=== PATIENT | female | born 1985 | race Two or more races ===

== ENCOUNTER 2017-07-16 09:55 | Emergency (ER) | payer OTHER ==
[2017-07-16 10:00] VITALS: TEMP 98.3; BMI 35.6
[2017-07-16] MEDS ORDERED: ACETAMINOPHEN 325 MG TABLET (FP) PO ONE (10:58)
--- NOTE | 2017-07-16 11:19 | PDOC ---
History of Present Illness - General Chief Complaint: Nausea Stated Complaint: PAIN/ LOWER PELVIC, ABD, LEG BRUISE Time Seen by Provider: 07/16/17 10:48 History Source: Patient Exam Limitations: No Limitations - History of Present Illness Travel History: No Initial Comments: 07/16/17 11:00 31-year-old female presents to the ED with left suprapubic mid suprapubic cramping associated now with nausea and pain upon movement. Patient states has history of ovarian cyst but denies history of ectopic or ovarian torsion. Patient does state menses came this month and only for 2 days. Patient states no back pain, dysuria, constipation, but does complain of radiation of pain down her left leg. Quality: reports: moderate, cramping Abdominal Pain Onset Location: reports: suprapubic (left) Pain Radiation: reports: other (midsuprapubic) Aggravating Factors: improves with: Movement Alleviating Factors: improves with: None Past History - Past Medical History Allergies/Adverse Reactions: Allergies Allergy/AdvReac Type Severity Reaction Status Date / Time No Known Allergies Allergy Verified 07/16/17 10:00 Home Medications: Ambulatory Orders Duloxetine HCl [Cymbalta] 30 mg PO DAILY 07/16/17 Meloxicam [Mobic] 7.5 mg PO ASDIR PRN 07/16/17 Psychiatric Problems: Yes (depression) Suicide Attempt (Hx): Yes - Immunization History Immunization Up to Date: Yes - Psycho/Social/Smoking Cessation Hx Anxiety: No Suicidal Ideation: No Smoking Status: No Smoking History: Current every day smoker Have you smoked in the past 12 months: Yes Number of Cigarettes Smoked Daily: 3 Information on smoking cessation initiated: Yes 'Breaking Loose' booklet given: 07/16/17 Hx Alcohol Use: Yes (SOCIAL) Drug/Substance Use Hx: No Substance Use Type: None Patient Lives Alone: No Lives with/in: spouse/SO Review of Systems - Review of Systems Able to Perform ROS?: Yes Constitutional: No: Symptoms Reported Respiratory: No: Symptoms reported Cardiac (ROS): No: Symptoms Reported ABD/GI: Yes: Nausea, Abdominal cramping : No: Symptoms Reported Musculoskeletal: No: Symptoms Reported Integumentary: Yes: Bruising (2 small bruises to lt leg) Neurological: No: Symptoms reported *Physical Exam - Vital Signs Last Vital Signs Temp Pulse Resp BP Pulse Ox 98.3 F 63 20 146/67 100 07/16/17 09:57 07/16/17 09:57 07/16/17 09:57 07/16/17 09:57 07/16/17 09:57 - Physical Exam General Appearance: Yes: Nourished, Appropriately Dressed. No: Apparent Distress HEENT: negative: Pale Conjunctivae Neck: positive: Supple Respiratory/Chest: positive: Lungs Clear, Normal Breath Sounds. negative: Respiratory Distress, Accessory Muscle Use Cardiovascular: positive: Regular Rhythm, Regular Rate. negative: Murmur Female Pelvic Exam: positive: cervical os closed, adnexal tenderness (left). negative: CMT Gastrointestinal/Abdominal: positive: Normal Bowel Sounds, Soft, Tenderness ( left suprapubic and midsuprapubic) Musculoskeletal: negative: CVA Tenderness Extremity: negative: Pedal Edema Integumentary: positive: Normal Color, Warm, Moist Neurologic: positive: Normal Mood/Affect, Motor Strength 5/5 (ambulatory with cane) ED Treatment Course - LABORATORY CBC & Chemistry Diagram: 07/16/17 11:18 07/16/17 11:15 - RADIOLOGY Radiology Studies Ordered: Category Date Time Status TRANSVAGINAL ULTRASOUND US [US] Stat Ultrasound 07/16/17 10:58 Ordered Medical Decision Making - Medical Decision Making 07/16/17 11:22 Patient with complaints of left suprapubic pain worsening severity over the past 2 days and worsened with movement. Patient states history of ovarian cyst and states pain is similar to previous episodes of cysts. Patient states took 2 Motrin with no effect and decided come to the ER today when pain continued. Patient states to get her menses last month but only for 2 days which she states is abnormal. Patient denies . Patient was ordered for urine , labs, Percocet and ultrasound. 07/16/17 13:17 Laboratory Tests 07/16/17 07/16/17 07/16/17 11:15 11:15 11:18 WBC 6.6 Hgb 12.6 Hct 39.4 Plt Count 244 Neutrophils % 60.6 Monocytes % 11.1 H Sodium 140 Potassium 4.1 Chloride 107 Anion Gap 7 L BUN 13 Creatinine 0.7 Random Glucose 89 Calcium 8.7 Total Bilirubin 0.3 AST 12 L ALT 16 Alkaline Phosphatase 66 Total Protein 7.0 Albumin 3.7 Urine Nitrite Negative Urine Urobilinogen 2.0 H Ur Leukocyte Esterase Negative Urine HCG, Qual Negative A 2 cm right ovarian isoechoic structure is noted representing a cyst with intraluminal debris or hemorrhage. There is [id number] amount of free fluid within the right adnexa and cul-de-sac. Patient states is feeling much better after receiving Percocet. Patient be discharged home to take extra strength Tylenol for discomfort and apply heating pad to the affected area. *DC/Admit/Observation/Transfer Diagnosis at time of Disposition: Ovarian cyst Qualifiers: Laterality: right Qualified Code(s): N83.201 - Unspecified ovarian cyst, right side - Discharge Dispostion Disposition: HOME Condition at time of disposition: Improved - Referrals Referrals: Nelson Cohen MD [Primary Care Provider] - - Patient Instructions Printed Discharge Instructions: DI for Ovarian Cyst Additional Instructions: May take 975 mg of Tylenol every 6-8 hours for discomfort. Please apply heating pad to the affected area. Please follow up with her MATERIAL EXPEDITOR as needed. Otherwise return to ED if symptoms worsen.
[2017-07-16 11:24] LABS: BASOPHIL 1.1 % (0-2.0); EOSINOPHIL 2.2 % (0-4.5); MCHC 31.9 g/dl (32.0-36.0); MEAN CELL VOLUME 84.8 fl (80-96); MEAN PLT VOLUME 8.1 fl (7.5-11.1); NEUTROPHILS 60.6 % (42.8-82.8); PLATELET COUNT 244 K/MM3 (134-434); RDW 13.4 % (11.6-15.6); WHITE BLOOD COUNT 6.6 K/mm3 (4.0-10.0)
[2017-07-16] MEDS ORDERED: ACETAMINOPHEN 325 MG TABLET (FP) ONE (11:24)
[2017-07-16 11:27] LABS: URINE APPEARANCE SLCLOUDY; URINE BILIRUBIN NEGATIVE (NEGATIVE); URINE BLOOD NEGATIVE (NEGATIVE); URINE COLOR YELLOW; URINE GLUCOSE (UA) NEGATIVE (NEGATIVE); URINE KETONE NEGATIVE (NEGATIVE); URINE LEUK ESTERASE NEGATIVE (NEGATIVE); URINE NITRITE NEGATIVE (NEGATIVE); URINE PROTEIN NEGATIVE (NEGATIVE)
[2017-07-16 11:54] LABS: ALBUMIN 3.7 g/dl (3.4-5.0); ALK PHOS 66 U/L (45-117); ANION GAP 7 (8-16); BILIRUBIN,TOTAL 0.3 mg/dL (0.2-1.0); CALCIUM 8.7 mg/dL (8.5-10.1); CO2 26 mmol/L (21-32); CREATININE 0.7 mg/dL (0.55-1.02); GLUCOSE,RANDOM 89 mg/dL (74-106); SGOT/AST 12 U/L (15-37); SGPT/ALT 16 U/L (12-78)
[2017-07-16 12:51] VITALS: BP 118/75; PULSE 57
--- NOTE | 2017-07-16 13:26 | PDOC ---
*Physical Exam - Vital Signs Last Vital Signs Temp Pulse Resp BP Pulse Ox 98.3 F 57 L 18 118/75 99 07/16/17 09:57 07/16/17 12:50 07/16/17 12:50 07/16/17 12:50 07/16/17 12:50 ED Treatment Course - LABORATORY CBC & Chemistry Diagram: 07/16/17 11:18 07/16/17 11:15 - ADDITIONAL ORDERS Additional order review: Laboratory Results 07/16/17 07/16/17 11:15 11:15 Sodium 140 Potassium 4.1 Chloride 107 Carbon Dioxide 26 Anion Gap 7 L BUN 13 Creatinine 0.7 Creat Clearance w eGFR > 60 Random Glucose 89 Calcium 8.7 Total Bilirubin 0.3 AST 12 L ALT 16 Alkaline Phosphatase 66 Total Protein 7.0 Albumin 3.7 Urine Color Yellow Urine Appearance Slcloudy Urine pH 7.0 Urine Protein Negative Urine Glucose (UA) Negative Urine Ketones Negative Urine Blood Negative Urine Nitrite Negative Urine Bilirubin Negative Urine Urobilinogen 2.0 H Ur Leukocyte Esterase Negative Urine HCG, Qual Negative 07/16/17 11:18 RBC 4.64 MCV 84.8 MCHC 31.9 L RDW 13.4 MPV 8.1 Neutrophils % 60.6 Lymphocytes % 25.0 Monocytes % 11.1 H Eosinophils % 2.2 Basophils % 1.1 - Medications Given in the ED: ED Medications Discontinued Medications Generic Name Dose Route Start Last Admin Trade Name Byron PRN Reason Stop Dose Admin Acetaminophen 650 mg 07/16/17 10:58 07/16/17 11:29 Tylenol - PO 07/16/17 10:59 650 mg ONCE ONE Administration Oxycodone/Acetaminophen 1 combo 07/16/17 10:58 07/16/17 11:29 Percocet 5/325 - PO 07/16/17 10:59 1 combo ONCE ONE Administration Medical Decision Making - Medical Decision Making 07/16/17 13:25 I agree with GERRY Dill's history, assessment and plan. *DC/Admit/Observation/Transfer Diagnosis at time of Disposition: Ovarian cyst Qualifiers: Laterality: right Qualified Code(s): N83.201 - Unspecified ovarian cyst, right side - Discharge Dispostion Disposition: HOME Condition at time of disposition: Improved - Referrals Referrals: Nelson Cohen MD [Primary Care Provider] - - Patient Instructions Printed Discharge Instructions: DI for Ovarian Cyst Additional Instructions: May take 975 mg of Tylenol every 6-8 hours for discomfort. Please apply heating pad to the affected area. Please follow up with her ELIGIBILITY SUPERVISOR as needed. Otherwise return to ED if symptoms worsen. - Post Discharge Activity
== END 2017-07-16 13:42 | disposition home or self-care (01) ==
LOC: JER 09:55
DX: N83.201 Unspecified ovarian cyst, right side (principal)
CPT/HCPCS: 36415; 76830-TC; 80053; 81003; 84703; 85025; 99283-25

== ENCOUNTER 2017-07-18 09:09 | Emergency (ER) | payer OTHER ==
[2017-07-18 09:17] VITALS: BMI 35.3
[2017-07-18] MEDS ORDERED: SODIUM CHLORIDE 1,000 ML IV STA (09:58)
[2017-07-18] MEDS ORDERED: morphine CARPU-JECT 4 MG/1 ML DISP.SYRIN IVPUSH ONE (09:58)
[2017-07-18] MEDS ORDERED: ONDANSETRON 4 MG/2 ML VIAL IVPB ONE (09:58)
[2017-07-18] MEDS ORDERED: morphine CARPU-JECT 10 MG/1 ML DISP.SYRIN ONE (10:12)
[2017-07-18] MEDS ORDERED: ONDANSETRON 4 MG/2 ML VIAL ONE (10:13)
[2017-07-18 10:15] LABS: EOSINOPHIL 2.8 % (0-4.5); MCH 27.5 pg (25.7-33.7); MCHC 32.5 g/dl (32.0-36.0); MEAN CELL VOLUME 84.6 fl (80-96); NEUTROPHILS 64.9 % (42.8-82.8); PLATELET COUNT 247 K/MM3 (134-434); RDW 13.4 % (11.6-15.6); WHITE BLOOD COUNT 5.1 K/mm3 (4.0-10.0)
--- NOTE | 2017-07-18 10:19 | PDOC ---
History of Present Illness - General Chief Complaint: Pain Stated Complaint: PAIN, REVISIT Time Seen by Provider: 07/18/17 09:25 History Source: Patient Exam Limitations: No Limitations - History of Present Illness Initial Comments: 07/18/17 10:08 Patient is a 31F with history of depression and lumbar fracture s/p surgery in 2013 and 2014 here today complaining of suprapubic pain. This was evaluated in the ED ON 07/16. Labs showed no white count or anemia, normal cmp. Ultrasound showed a 2cm cyst with intraluminal debris or hemorrhage, dopplers normal. Was discharged with Dx of ovarian cyst and told to come back if pain worsened. Pain has continued to worsen, now more midline with associated nausea. Past History - Past Medical History Allergies/Adverse Reactions: Allergies Allergy/AdvReac Type Severity Reaction Status Date / Time No Known Allergies Allergy Verified 07/18/17 09:14 Home Medications: Ambulatory Orders Duloxetine HCl [Cymbalta] 30 mg PO DAILY 07/16/17 Meloxicam [Mobic] 7.5 mg PO ASDIR PRN 07/16/17 Doxycycline Hyclate 100 mg PO BID #27 capsule 07/18/17 Metronidazole 500 mg PO BID #27 tablet 07/18/17 Psychiatric Problems: Yes (depression) Suicide Attempt (Hx): Yes - Reproductive History Is Patient Now?: No (#): 0 - Immunization History Immunization Up to Date: Yes - Psycho/Social/Smoking Cessation Hx Anxiety: No Suicidal Ideation: No Smoking Status: No Smoking History: Current every day smoker Have you smoked in the past 12 months: Yes Number of Cigarettes Smoked Daily: 3 Information on smoking cessation initiated: No 'Breaking Loose' booklet given: 07/16/17 Hx Alcohol Use: Yes (SOCIAL) Drug/Substance Use Hx: No Substance Use Type: None Review of Systems - Review of Systems Comments:: 07/18/17 10:29 GENERAL/CONSTITUTIONAL: No fever or chills. No weakness. HEAD, EYES, EARS, NOSE AND THROAT: No change in vision. No ear pain or discharge. No sore throat. CARDIOVASCULAR: No chest pain or shortness of breath RESPIRATORY: No cough, wheezing, or hemoptysis. GASTROINTESTINAL: Positive for nausea. Negative for vomiting, diarrhea or constipation. GENITOURINARY: No dysuria, frequency, or change in urination. MUSCULOSKELETAL: No joint or muscle swelling or pain. Positive for lower back pain, unchanged from baseline SKIN: No rash NEUROLOGIC: Positive for headache. Negative for vertigo, loss of consciousness, or change in strength/sensation. HEMATOLOGIC/LYMPHATIC: No anemia, easy bleeding, or history of blood clots. ALLERGIC/IMMUNOLOGIC: No hives or skin allergy. *Physical Exam - Vital Signs Last Vital Signs Temp Pulse Resp BP Pulse Ox 98 F 91 H 18 141/89 100 07/18/17 09:11 07/18/17 09:11 07/18/17 09:11 07/18/17 09:11 07/18/17 09:11 - Physical Exam Comments: 07/18/17 10:30 GENERAL: Awake, alert, and fully oriented, in no acute distress HEAD: No signs of trauma, normocephalic, atraumatic EYES: PERRLA, EOMI, sclera anicteric, conjunctiva clear ENT: Auricles normal inspection, hearing grossly normal, nares patent, oropharynx clear without exudates. Moist mucosa NECK: Normal ROM, supple, no lymphadenopathy, JVD, or masses LUNGS: No distress, speaks full sentences, clear to auscultation bilaterally HEART: Regular rate and rhythm, normal S1 and S2, no murmurs, rubs or gallops, peripheral pulses normal and equal bilaterally. ABDOMEN: Superpubic tenderness. Normoactive bowel sounds. No guarding, no rebound. No masses EXTREMITIES: Normal inspection, Normal range of motion, no edema. No clubbing or cyanosis. NEUROLOGICAL: Cranial nerves II through XII grossly intact. Normal speech, no focal sensorimotor deficits SKIN: Warm, Dry, normal turgor, no rashes or lesions noted. 07/18/17 10:59 PELVIC: Unable to insert speculum secondary to patient compliance, bimanual examination shows diffuse tenderness, positive cervical motion tenderness. ED Treatment Course - LABORATORY CBC & Chemistry Diagram: 07/18/17 10:12 07/18/17 10:12 Medical Decision Making - Medical Decision Making 07/18/17 10:31 31F with history of depression and lumbar fracture here today with suprapubic abdominal pain. Evaluated two days ago, discharged with ovarian cyst diagnosis. Pain has continued to worsen. Will broaden workup with pelvic exam and abdominal ct. Will redraw abdominal labs. Given 1L NS, zofran, morphine. 07/18/17 14:43 CT reassuring, shows no acute intrabdominal processes. Pelvic exam diffusely tender, unable to visualize cervix secondary to patient not tolerating pelvic exam. Positive cervical motion tenderness. Will treat with ceftriaxone, doxy and metro. *DC/Admit/Observation/Transfer Diagnosis at time of Disposition: PID (acute pelvic inflammatory disease) - Discharge Dispostion Disposition: HOME Condition at time of disposition: Good Admit: No - Prescriptions Prescriptions: Doxycycline Hyclate 100 mg PO BID #27 capsule Metronidazole 500 mg PO BID #27 tablet - Referrals Referrals: Nelson Cohen MD [Primary Care Provider] - - Patient Instructions Printed Discharge Instructions: DI for Pelvic Inflammatory Disease
[2017-07-18 10:39] LABS: URINE APPEARANCE SLCLOUDY; URINE BLOOD NEGATIVE (NEGATIVE); URINE COLOR AMBER; URINE GLUCOSE (UA) NEGATIVE (NEGATIVE); URINE KETONE TRACE (NEGATIVE); URINE LEUK ESTERASE NEGATIVE (NEGATIVE); URINE NITRITE NEGATIVE (NEGATIVE)
[2017-07-18 10:39] LABS: ALBUMIN 3.7 g/dl (3.4-5.0); ANION GAP 8 (8-16); BILIRUBIN,TOTAL 0.3 mg/dL (0.2-1.0); CALCIUM 8.9 mg/dL (8.5-10.1); CO2 26 mmol/L (21-32); CREATININE 0.8 mg/dL (0.55-1.02); GLUCOSE,RANDOM 79 mg/dL (74-106); SGOT/AST 10 U/L (15-37); SGPT/ALT 15 U/L (12-78); TOT PROT 7.3 g/dl (6.4-8.2)
[2017-07-18 10:40] LABS: ALK PHOS 66 U/L (45-117)
[2017-07-18 10:40] LABS: URINE PROTEIN 1+ (NEGATIVE)
[2017-07-18 11:53] LABS: URINE MUCUS MANY; URINE RBC 6 /hpf (0-3); URINE WBC 2 /hpf (3-5)
[2017-07-18] MEDS ORDERED: metroNIDAZOLE 250 MG TABLET PO ONE (14:39)
[2017-07-18] MEDS ORDERED: DOXYCYCLINE HYCLATE 100 MG CAPSULE PO ONE ×2 (14:39→15:04)
[2017-07-18] MEDS ORDERED: metroNIDAZOLE 250 MG TABLET ONE (15:03)
[2017-07-18] MEDS ORDERED: cefTRIAXone SODIUM 1 GM VIAL ONE (15:04)
[2017-07-18] MEDS ORDERED: LIDOCAINE HCL 2% (20ML MULTI-DOSE VIAL) NR ONE (15:07)
[2017-07-18 15:19] VITALS: BP 110/57; PULSE 58; TEMP 98
== END 2017-07-18 15:27 | disposition home or self-care (01) ==
LOC: JER 09:09
PROC: 3E033NZ Introduction of Analgesics, Hypnotics, Sedatives into Peripheral Vein, Percutaneous Approach (ICD-10-PCS; principal; 2017-07-18)
PROC: 3E033GC Introduction of Other Therapeutic Substance into Peripheral Vein, Percutaneous Approach (ICD-10-PCS; 2017-07-18)
PROC: 3E02329 Introduction of Other Anti-infective into Muscle, Percutaneous Approach (ICD-10-PCS; 2017-07-18)
DX: N73.8 Other specified female pelvic inflammatory diseases (principal)
CPT/HCPCS: 36415; 74177-TC; 80053; 81003; 81015; 83690; 84703; 85025; 87491; 87591; 96372; 96374; 96375; 99283-25

== ENCOUNTER 2018-03-24 12:09 | Emergency (ER) | payer OTHER ==
[2018-03-24 12:15] VITALS: TEMP 98.6; BMI 34.7
--- NOTE | 2018-03-24 12:47 | PDOC ---
History of Present Illness - General Chief Complaint: Pain, Acute Stated Complaint: BACK/LEG PAIN (POST-SURG) Time Seen by Provider: 03/24/18 12:28 Past History - Travel Traveled outside of the country in the last 30 days: No Close contact w/someone who was outside of country & ill: No - Past Medical History Allergies/Adverse Reactions: Allergies Allergy/AdvReac Type Severity Reaction Status Date / Time No Known Allergies Allergy Verified 03/24/18 12:12 Home Medications: Ambulatory Orders Chlorzoxazone [Lorzone] 750 mg PO ASDIR 03/24/18 Cyclobenzaprine/Irr Cntr-Irr 2 [Comfort Pac-Cyclobenzaprine Kt] 10 mg PO ASDIR 03/24/18 Gabapentin 300 mg PO ASDIR 03/24/18 Hydrocodone/Acetaminophen [Hydrocodone-Acetamin 7.5-300] 7.5 mg PO ASDIR COPD: No Psychiatric Problems: Yes (depression) - Reproductive History (#): 0 - Immunization History Immunization Up to Date: Yes - Suicide/Smoking/Psychosocial Hx Smoking Status: No Smoking History: Former smoker Have you smoked in the past 12 months: Yes Number of Cigarettes Smoked Daily: 3 Information on smoking cessation initiated: No 'Breaking Loose' booklet given: 07/16/17 Hx Alcohol Use: Yes (SOCIAL) Drug/Substance Use Hx: No Substance Use Type: None Review of Systems - Review of Systems Able to Perform ROS?: Yes Comments:: 03/24/18 12:47 CONSTITUTIONAL: Absent: fever, chills, diaphoresis, generalized weakness, malaise, loss of appetite HEENT: Absent: rhinorrhea, nasal congestion, throat pain, throat swelling, difficulty swallowing, mouth swelling, ear pain, eye pain, visual Changes CARDIOVASCULAR: Absent: chest pain, loss of consciousness, palpitations, irregular heart rate, peripheral edema RESPIRATORY: Absent: cough, shortness of breath, dyspnea with exertion, orthopnea, wheezing, stridor, hemoptysis GASTROINTESTINAL: Absent: abdominal pain, abdominal distension, nausea, vomiting, diarrhea, constipation, melena, hematochezia GENITOURINARY: Absent: dysuria, frequency, urgency, hesitancy, hematuria, flank pain, genital pain MUSCULOSKELETAL: Absent: myalgia, arthralgia, joint swelling SKIN: Absent: rash, itching, pallor HEMATOLOGIC/IMMUNOLOGIC: Absent: easy bleeding, easy bruising, lymphadenopathy, frequent infections ENDOCRINE: Absent: unexplained weight gain, unexplained weight loss, heat intolerance, cold intolerance NEUROLOGIC: Absent: headache, focal weakness or paresthesias, dizziness, unsteady gait, seizure, mental status changes, bladder or bowel incontinence PSYCHIATRIC: Absent: anxiety, depression, suicidal or homicidal ideation, hallucinations. Is the patient limited Yemeni proficient: No *Physical Exam - Vital Signs Last Vital Signs Temp Pulse Resp BP Pulse Ox 98.6 F 99 H 18 131/83 98 03/24/18 12:13 03/24/18 12:13 03/24/18 12:13 03/24/18 12:13 03/24/18 12:13 - Physical Exam Comments: 03/24/18 12:47 GENERAL: Well developed, well nourished. Awake and alert. No acute distress. HEENT: Normocephalic, atraumatic. PERRLA, EOMI. No conjunctival pallor. Sclera are non- icteric. Moist mucous membranes. Oropharynx is clear. NECK: Supple. Full ROM. No JVD. Carotid pulses 2+ and symmetric, without bruits. No thyromegaly. No lymphadenopathy. CARDIOVASCULAR: Regular rate and rhythm. No murmurs, rubs, or gallops. Distal pulses are 2+ and symmetric. PULMONARY: No evidence of respiratory distress. Lungs clear to auscultation bilaterally. No wheezing, rales or rhonchi. ABDOMINAL: Soft. Non-tender. Non-distended. No rebound or guarding. No organomegaly. Normoactive bowel sounds. MUSCULOSKELETAL Normal range of motion at all joints. No bony deformities or tenderness. No CVA tenderness. EXTREMITIES: No cyanosis. No clubbing. No edema. No calf tenderness. SKIN: Warm and dry. Normal capillary refill. No rashes. No jaundice. NEUROLOGICAL: Alert, awake, appropriate. Cranial nerves 2-12 intact. No deficits to light touch and temperature in face, upper extremities and lower extremities. No motor deficits in the in face, upper extremities and lower extremities. Normoreflexic in the upper and lower extremities. Normal speech. Toes are down- going bilaterally. Gait is normal without ataxia. PSYCHIATRIC: Cooperative. Good eye contact. Appropriate mood and affect. *DC/Admit/Observation/Transfer - Referrals Referrals: ON STAFF,NOT [Primary Care Provider] - - Patient Instructions - Post Discharge Activity
[2018-03-24] MEDS ORDERED: KETOROLAC TROMETHAMINE 60 MG/2 ML VIAL IM ONE (13:02)
[2018-03-24] MEDS ORDERED: diazePAM 5 MG TABLET PO ONE (13:33)
--- NOTE | 2018-03-24 13:33 | PDOC ---
History of Present Illness - General Chief Complaint: Pain, Acute Stated Complaint: BACK/LEG PAIN (POST-SURG) Time Seen by Provider: 03/24/18 12:28 History Source: Patient Exam Limitations: No Limitations - History of Present Illness Initial Comments: CHIEF COMPLAINT: 32 y/o female with PMH 3 previous surgeries to lumbar spine including L1 and L5 replacement (on gabapentin, narcotic pain meds and flexeril daily) c/o right sided low back pain radiating down her right leg x 3 days. HISTORY OF PRESENT ILLNESS: The patient denies recent re-injury, slip, fall, heavy lifting, twisting. She has been going to physical therapy and taking her medications as prescribed. She states her right foot is tingling. Vital signs on arrival are notable for pulse of 99. REVIEW OF SYSTEMS: GENERAL/CONSTITUTIONAL: No fever/chills. No weakness. No weight change. HEAD, EYES, EARS, NOSE AND THROAT: No change in vision. No ear pain or discharge. No sore throat. CARDIOVASCULAR: No chest pain or shortness of breath. RESPIRATORY: No cough, wheezing, or hemoptysis. GASTROINTESTINAL: No abd pain, nausea, vomiting, diarrhea. GENITOURINARY: No dysuria, frequency, or change in urination. MUSCULOSKELETAL: +right low back pain with tingling in right leg. No joint or muscle swelling or pain. No neck pain. SKIN: No rash or easy bruising. NEUROLOGIC: No headache, vertigo, loss of consciousness, or loss of sensation. PHYSICAL EXAM: GENERAL: The patient is awake, alert, and fully oriented, in no acute distress. HEAD: Normal with no signs of trauma. ENT: Pupils equal, round and reactive to light, extraocular movements intact, sclera anicteric, conjunctiva clear. Neck supple. LUNGS: Clear to auscultation bilaterally. Normal excursion. No respiratory distress or use of accessory muscles. CV: RRR, S1/S2, no MRG. Cap refill < 2 sec. ABDOMEN: Soft, non-distended, non-tender even to deep palpation, no hepatomegaly or splenomegaly, no masses. BACK: No midline lumbar vertebral TTP or step offs. Pain elicited with palpation of right lumbar paravertebral muscles and with palpation of right buttock. EXTREMITIES: Normal range of motion, no edema. NEUROLOGICAL: Normal speech. Gait not assessed. CN II-XII grossly intact. Sensory intact in b/l LEs. PSYCH: Normal mood, normal affect. SKIN: Warm, dry, normal turgor, no rashes or lesions noted. Past History - Past Medical History Allergies/Adverse Reactions: Allergies Allergy/AdvReac Type Severity Reaction Status Date / Time No Known Allergies Allergy Verified 03/24/18 12:12 Home Medications: Ambulatory Orders Chlorzoxazone [Lorzone] 750 mg PO ASDIR 03/24/18 Cyclobenzaprine/Irr Cntr-Irr 2 [Comfort Pac-Cyclobenzaprine Kt] 10 mg PO ASDIR 03/24/18 Diazepam [Valium] 5 mg PO BID #10 tablet MDD 3 03/24/18 Gabapentin 300 mg PO ASDIR 03/24/18 Hydrocodone/Acetaminophen [Hydrocodone-Acetamin 7.5-300] 7.5 mg PO ASDIR COPD: No Psychiatric Problems: Yes (depression) - Reproductive History (#): 0 - Immunization History Immunization Up to Date: Yes - Suicide/Smoking/Psychosocial Hx Smoking Status: No Smoking History: Former smoker Have you smoked in the past 12 months: No Number of Cigarettes Smoked Daily: 3 Information on smoking cessation initiated: No 'Breaking Loose' booklet given: 07/16/17 Hx Alcohol Use: Yes (SOCIAL) Drug/Substance Use Hx: No Substance Use Type: None *Physical Exam - Vital Signs Last Vital Signs Temp Pulse Resp BP Pulse Ox 98.6 F 99 H 18 131/83 98 03/24/18 12:13 03/24/18 12:13 03/24/18 12:13 03/24/18 12:13 03/24/18 12:13 Medical Decision Making - Medical Decision Making A/P: 32 y/o female with right sided sciatica symptoms. Given her back surgical history will proceed as follows: 1. Toradol 2. Valium 3. CT lumbar spine. CT lumbar spine IMPRESSION: Interval fusion of L5-S1. Anterior fusion was present on the prior examination. Grade 1 anterolisthesis of L5 over S1, approximately 10cm is again seen unchanged since prior CT scan of the abdomen sagittal reformatted images, dated 07/10/2017. Evaluation of the spinal canal at the site of surgery is quite limited due to beam hardening artifacts. However, there remains suggestion of moderate narrowing of the foramina and mild bilateral lateral disc bulge. The rest of the lumbar spine appears unremarkable without gross evidence of disc herniation or spinal canal stenosis. The patient states she feels better and is now lying on her side. Gave her the results. Will send rx for valium and instructed her to stop taking flexeril while taking valium. Instructed her to f/u with her PCP and back doctor next week and return to the ER with any worsening or concerning symptoms. The patient verbalizes understanding of all instructions, has no further questions and is awaiting discharge. *DC/Admit/Observation/Transfer Diagnosis at time of Disposition: Muscle spasm of back Sciatica Qualifiers: Laterality: right Qualified Code(s): M54.31 - Sciatica, right side - Discharge Dispostion Disposition: HOME Condition at time of disposition: Improved - Referrals Referrals: ON STAFF,NOT [Primary Care Provider] - - Patient Instructions Printed Discharge Instructions: DI for Back Spasm, DI for Back Pain With Sciatica Additional Instructions: Discharge Instructions: -A prescription for Valium has been sent to your pharmacy; please do not take Cyclobenzaprine while taking this medication -Valium may make you drowsy -Follow up with your doctor and back doctor next week -Return to the ER with any worsening or concerning symptoms - Post Discharge Activity
[2018-03-24] MEDS ORDERED: KETOROLAC TROMETHAMINE 60 MG/2 ML VIAL ONE (13:49)
--- NOTE | 2018-03-24 16:04 | PDOC ---
*Physical Exam - Vital Signs Last Vital Signs Temp Pulse Resp BP Pulse Ox 98.6 F 99 H 18 131/83 98 03/24/18 12:13 03/24/18 12:13 03/24/18 12:13 03/24/18 12:13 03/24/18 12:13 ED Treatment Course - ADDITIONAL ORDERS Additional order review: Laboratory Results 03/24/18 13:00 Urine HCG, Qual Negative - Medications Given in the ED: ED Medications Discontinued Medications Generic Name Dose Route Start Last Admin Trade Name Byron PRN Reason Stop Dose Admin Diazepam 10 mg 03/24/18 13:33 03/24/18 14:00 Valium - PO 03/24/18 13:34 10 mg ONCE ONE Administration Ketorolac Tromethamine 60 mg 03/24/18 13:02 03/24/18 14:00 Toradol Injection - IM 03/24/18 13:03 60 mg ONCE ONE Administration Medical Decision Making - Medical Decision Making 03/24/18 16:00 Pt seen by Midlevel Provider under my direct supervision Ancillary studies reviewed I agree with plan as outlined by Midlevel Provider *DC/Admit/Observation/Transfer Diagnosis at time of Disposition: Muscle spasm of back, Sciatica - Discharge Dispostion Disposition: HOME Condition at time of disposition: Improved - Prescriptions Prescriptions: Diazepam [Valium] 5 mg PO BID #10 tablet MDD 3 - Referrals Referrals: ON STAFF,NOT [Primary Care Provider] - - Patient Instructions Printed Discharge Instructions: DI for Back Pain With Sciatica, DI for Back Spasm Additional Instructions: Discharge Instructions: -A prescription for Valium has been sent to your pharmacy; please do not take Cyclobenzaprine while taking this medication -Valium may make you drowsy -Follow up with your doctor and back doctor next week -Return to the ER with any worsening or concerning symptoms - Post Discharge Activity
[2018-03-24 16:39] VITALS: BP 109/63; PULSE 88
== END 2018-03-24 16:38 | disposition home or self-care (01) ==
LOC: JER 12:09 → JERFT 12:09 → JER 16:38
PROC: 3E0233Z Introduction of Anti-inflammatory into Muscle, Percutaneous Approach (ICD-10-PCS; principal; 2018-03-24)
DX: M62.830 Muscle spasm of back (principal); M54.31 Sciatica, right side
CPT/HCPCS: 72131-TC; 84703; 99282-25

== ENCOUNTER 2018-11-09 18:52 | Emergency (ER) | payer OTHER ==
[2018-11-09 19:31] VITALS: BP 142/71; PULSE 90; TEMP 98; BMI 40.8
--- NOTE | 2018-11-09 19:31 | PDOC ---
Rapid Medical Evaluation Medical Evaluation: Allergies Allergy/AdvReac Type Severity Reaction Status Date / Time No Known Allergies Allergy Verified 03/24/18 12:12 I have performed a brief in-person evaluation of this patient. The patient presents with a chief complaint of: Hx of chronic lower back pain, spinal surgeries in past presents with acute on chronic lower back pain radiating down RLE. Denies trauma, heavy exertional work, saddle/groin paresthesia, bowel/bladder incontinence. Seen in 03/2018 for similar sxs and had CT L spine done. Took pain meds at home but unable to recall their names. States pain is similar to her prior back pain Pertinent physical exam findings: In NAD, patient with TTP along lower lumbar spine The patient will proceed to the ED for further evaluation. 11/09/18 19:27
[2018-11-09] MEDS ORDERED: KETOROLAC TROMETHAMINE 60 MG/2 ML VIAL IM ONE (20:08)
[2018-11-09] MEDS ORDERED: KETOROLAC TROMETHAMINE 60 MG/2 ML VIAL ONE (20:09)
--- NOTE | 2018-11-09 20:12 | PDOC ---
History of Present Illness - General Chief Complaint: Pain Stated Complaint: BACK PAIN Time Seen by Provider: 11/09/18 19:50 History Source: Patient Exam Limitations: No Limitations - History of Present Illness Initial Comments: Patient is a 33-year-old female who states that she has lower back pain. 1 year. Patient has had a previous back surgery November of last year. She denies reinjury or trauma. She denies urinary symptoms. Patient denies LE paresthesia. She denies history of IV drug use. Patient denies loss of bowel/ bladder control or urinary retention. She describes the pain as a throb and rates it at a 9 out of 10. She states that her pain management clinic gave her 10 days worth of hydrocodone which she is now out of. Patient takes Neurontin for her back pain on a regular basis and a muscle relaxer. Patient denies any relieving factors. 11/09/18 20:08 Past History - Travel Traveled outside of the country in the last 30 days: No Close contact w/someone who was outside of country & ill: No - Past Medical History Allergies/Adverse Reactions: Allergies Allergy/AdvReac Type Severity Reaction Status Date / Time No Known Allergies Allergy Verified 11/09/18 19:27 Home Medications: Ambulatory Orders Chlorzoxazone [Lorzone] 750 mg PO ASDIR 03/24/18 Cyclobenzaprine/Irr Cntr-Irr 2 [Comfort Pac-Cyclobenzaprine Kt] 10 mg PO ASDIR 03/24/18 Diazepam [Valium] 5 mg PO BID #10 tablet MDD 3 03/24/18 Gabapentin 300 mg PO ASDIR 03/24/18 COPD: No Psychiatric Problems: Yes (depression) - Reproductive History (#): 0 - Immunization History Immunization Up to Date: Yes - Suicide/Smoking/Psychosocial Hx Smoking Status: No Smoking History: Former smoker Have you smoked in the past 12 months: No Number of Cigarettes Smoked Daily: 3 If you are a former smoker, when did you quit?: 2 yrs ago Information on smoking cessation initiated: No 'Breaking Loose' booklet given: 07/16/17 Hx Alcohol Use: No Drug/Substance Use Hx: No Substance Use Type: None Review of Systems - Review of Systems Able to Perform ROS?: Yes Constitutional: No: Chills, Fever All Other Systems: Reviewed and Negative *Physical Exam - Vital Signs Last Vital Signs Temp Pulse Resp BP Pulse Ox 98.0 F 90 20 142/71 100 18 19:28 1218 19:28 18 19:28 11/09/18 19:28 11/09/18 19:28 - Physical Exam Comments: Constitutional: VS stated, pt appears in no apparent distress; obese, ambulated to examination room, steady gait noted. Skin: Warm and dry. Intact, no lesions or excoriations. Post surgical scar, no signs of infection. Head: Normocephalic; atraumatic Eyes: conjunctiva pink without injection or discharge. Throat: Oropharynx with pink and moist mucosa. Lungs: Bilateral breath sounds clear upon auscultation. No adventitious breath sounds. Heart: Regular rate and rhythm, S1/S2 auscultated. No murmurs, rubs, or gallops. No visible pulsations, heaves, or lifts on precordium. Abdomen: Soft and non-tender. Bowel sounds present in all 4 quadrants, no hepatosplenomegaly, No bruits auscultated. No guarding or rebound. No masses or visible pulsations present. No suprapubic tenderness. No CVAT. No bruits. Musculoskeletal: Full ROM of TMJ without pain, tenderness, or crepitus. Normal curves of cervical, thoracic, and lumbar spine. Full ROM of cervical and lumbar spine. Proximal joints normal; neck, arms, hips, knees, and ankles with full range of active and passive motion. Muscles appear symmetric. Sensation intact medially and laterally. No saddle anesthesia. DTRs+2. No tenderness on palpation of spine. 5/5 strength in upper extremities and lower extremity groups. Neurologic: Awake, alert. Conversation fluent. 11/09/18 20:10 Moderate Sedation - Procedure Monitoring Vital Signs: Procedure Monitoring Vital Signs Temperature 98.0 F 11/09/18 19:28 Pulse Rate 90 11/09/18 19:28 Respiratory Rate 20 11/09/18 19:28 Blood Pressure 142/71 11/09/18 19:28 O2 Sat by Pulse Oximetry (%) 100 11/09/18 19:28 Medical Decision Making - Medical Decision Making Pt has no red flag signs which warrant an emergent MRI. Patient was given Toradol 60 mg IM. She had no signs of anaphylaxis or ALLERGIC reaction. The patient will follow-up with orthopedic surgeon and pain management. 11/09/18 20:11 *DC/Admit/Observation/Transfer Diagnosis at time of Disposition: Chronic back pain Qualifiers: Back pain location: low back pain Back pain laterality: bilateral Sciatica presence: without sciatica Qualified Code(s): M54.5 - Low back pain; G89.29 - Other chronic pain - Discharge Dispostion Disposition: HOME Condition at time of disposition: Stable Decision to Admit order: No - Referrals - Patient Instructions Printed Discharge Instructions: DI for Low Back Pain Additional Instructions: FU with your ortho MD and pain management. - Post Discharge Activity
== END 2018-11-09 20:16 | disposition home or self-care (01) ==
LOC: JERFT 18:52
DX: M54.5 Low back pain (principal); G89.29 Other chronic pain
CPT/HCPCS: 99281-25

== ENCOUNTER 2019-09-20 15:02 | Inpatient (IN) | payer OTHER ==
--- NOTE | 2019-09-20 15:09 | PDOC ---
Rapid Medical Evaluation Time Seen by Provider: 09/20/19 15:04 Medical Evaluation: Allergies Allergy/AdvReac Type Severity Reaction Status Date / Time No Known Allergies Allergy Verified 11/09/18 19:27 09/20/19 15:05 I have performed a brief in-person evaluation of this patient. The patient presents with a chief complaint of: two weeks with change in vision to L eye, weakness to L arm for 1 month. reports waking up with complete blindness to L eye (only can see black). sent to ER by ophtho Dr. Palomino for brain /orbit MRI and stroke work up. saw PCP Litzy Petty 3 weeks ago re: weakness to arm, was told everything normal Pertinent physical exam findings: well appearing, no obvious focal neuro deficits. L arm strength 5/5 I have ordered the following: labs, defer imaging to ED provider (stroke code not called as well outside TPA window) The patient will proceed to the ED for further evaluation. Discharge Disposition - Diagnosis Vision changes - Discharge Dispostion Condition at time of disposition: Stable - Referrals - Patient Instructions - Post Discharge Activity
[2019-09-20] MEDS ORDERED: SODIUM CHLORIDE 1,000 ML IV SCH (15:15)
[2019-09-20 15:50] LABS: BASO % 1.3 % (0-2.0); EOS % 2.9 % (0-4.5); HEMATOCRIT 36.5 % (32.4-45.2); HEMOGLOBIN 12.2 GM/dL (10.7-15.3); LYMPH % 30.1 % (8-40); MCH 28.4 pg (25.7-33.7); MCHC 33.4 g/dl (32.0-36.0); MEAN PLT VOLUME 8.8 fl (7.5-11.1); MONO % 10.7 % (3.8-10.2); PLATELET COUNT 275 K/MM3 (134-434); RBC 4.29 M/mm3 (3.60-5.2); RDW 14.1 % (11.6-15.6); WHITE BLOOD COUNT 5.5 K/mm3 (4.0-10.0)
[2019-09-20 15:55] LABS: EPI CELLS 0.6 /HPF (0-5/HPF); HYALINE CASTS 1 /lpf (0-8); URINE APPEARANCE CLEAR; URINE BILIRUBIN NEGATIVE (NEGATIVE); URINE COLOR YELLOW; URINE GLUCOSE (UA) NEGATIVE (NEGATIVE); URINE KETONE NEGATIVE (NEGATIVE); URINE LEUK ESTERASE NEGATIVE (NEGATIVE); URINE NITRITE NEGATIVE (NEGATIVE); URINE PROTEIN NEGATIVE (NEGATIVE); URINE RBC 2 /hpf (0-4); URINE UROBILINOGEN 0.2 mg/dL (0.2-1.0); URINE WBC 0 /hpf (0-5)
[2019-09-20 16:22] LABS: LDL CHOLESTEROL (ONLY SJRH) 83 mg/dL (5-100); TRIGLYCERIDES 59 mg/dL (0-150)
[2019-09-20 16:25] LABS: ALBUMIN 3.7 g/dl (3.4-5.0); ALK PHOS 85 U/L (45-117); ANION GAP 7 MMOL/L (8-16); BILIRUBIN,TOTAL 0.2 mg/dL (0.2-1); BLOOD UREA NITROGEN 11.5 mg/dL (7-18); CALCIUM 9.1 mg/dL (8.5-10.1); CHLORIDE 107 mmol/L (98-107); CO2 26 mmol/L (21-32); CREATININE 0.7 mg/dL (0.55-1.3); GLUCOSE,RANDOM 71 mg/dL (74-106); POTASSIUM 4.1 mmol/L (3.5-5.1); SGOT/AST 12 U/L (15-37); SGPT/ALT 15 U/L (13-61); SODIUM 140 mmol/L (136-145)
[2019-09-20 16:44] LABS: CHOLESTEROL 172 mg/dL (50-200); LDL CHOLESTEROL (ONLY SJRH) 80 mg/dL (5-100); TRIGLYCERIDES 59 mg/dL (0-150)
--- NOTE | 2019-09-20 17:24 | PDOC ---
History of Present Illness - General Chief Complaint: Eye Problem Stated Complaint: SENT BY PCP/LT EYE PAIN Time Seen by Provider: 09/20/19 15:04 - History of Present Illness Initial Comments: 09/20/19 17:23 33 year old woman with a hsitory of depression and multiple spinal surgeries s/ p lumbar fx who presents with Left eye vision loss that occurs for 2-3 hours after waking from any sleep. The patient also reports intermittent headache, but notes that the vision loss and headache are not typically correlated. She states that on initial onset of symptoms she had some pain with extraocular movements of the L eye that has since resolved. The patient went to her upfitter today who dilated her eyes and noted possible optic nerve edema. The patient deneis any other compliants. ROS GENERAL/CONSTITUTIONAL: No fever or chills. No weakness. HEAD, EYES, EARS, NOSE AND THROAT: + change in vision. No sore throat. CARDIOVASCULAR: No chest pain or shortness of breath RESPIRATORY: No cough, wheezing, or hemoptysis. GASTROINTESTINAL: No nausea, vomiting, diarrhea or constipation. GENITOURINARY: No dysuria, frequency, or change in urination. MUSCULOSKELETAL: No joint or muscle swelling or pain. No neck or back pain. SKIN: No rash NEUROLOGIC: + headache, No vertigo, loss of consciousness, or change in strength /sensation. PE GENERAL: Awake, alert, and fully oriented, in no acute distress HEAD: No signs of trauma, normocephalic, atraumatic EYES: dilated pupils, EOMI, sclera anicteric, conjunctiva clear ENT: oropharynx clear without exudates. Moist mucosa NECK: Normal ROM, supple LUNGS: No distress, speaks full sentences, clear to auscultation bilaterally HEART: Regular rate and rhythm, normal S1 and S2, no murmurs, rubs or gallops, peripheral pulses normal and equal bilaterally. ABDOMEN: Soft, nontender. No guarding, no rebound. No masses EXTREMITIES : Normal inspection, Normal range of motion, no edema. No clubbing or cyanosis. NEUROLOGICAL: Cranial nerves II through XII grossly intact. Normal speech, no focal sensorimotor deficits SKIN: Warm, Dry, normal turgor, no rashes or lesions noted MDM DDX including but not limited to: MS r/o cva ED Course: labs, MRI discussed case with Dr. Cowart who recommends noncon MRI plan for admission labs wnl Sameera Knutson, PGY2 Emergency Medicine Past History - Past Medical History Allergies/Adverse Reactions: Allergies Allergy/AdvReac Type Severity Reaction Status Date / Time No Known Allergies Allergy Verified 11/09/18 19:27 Home Medications: Ambulatory Orders Pramipexole Di-HCl [Pramipexole Dihydrochloride] 0.125 mg PO Q12H PRN #30 tablet 09/22/19 Topiramate 50 mg PO HS #2 tablet 09/22/19 Topiramate 75 mg PO HS #9 tablet 09/22/19 Topiramate [Topamax -] 100 mg PO HS #14 tab 09/22/19 COPD: No Psychiatric Problems: Yes (depression) - Reproductive History (#): 0 - Immunization History Immunization Up to Date: Yes - Psycho Social/Smoking Cessation Hx Smoking Status: No Smoking History: Former smoker Have you smoked in the past 12 months: No Number of Cigarettes Smoked Daily: 3 If you are a former smoker, when did you quit?: 2 yrs ago Information on smoking cessation initiated: No 'Breaking Loose' booklet given: 07/16/17 Hx Alcohol Use: No Drug/Substance Use Hx: No Substance Use Type: None *Physical Exam - Vital Signs Last Vital Signs Temp Pulse Resp BP Pulse Ox 98.2 F 82 18 116/74 100 09/20/19 15:07 09/20/19 15:07 09/20/19 15:07 09/20/19 15:07 09/20/19 15:07 ED Treatment Course - LABORATORY CBC & Chemistry Diagram: 09/22/19 07:40 09/22/19 07:40 - ADDITIONAL ORDERS Additional order review: Laboratory Results 09/20/19 09/20/19 09/20/19 15:34 15:34 15:34 Sodium Potassium Chloride Carbon Dioxide Anion Gap BUN Creatinine Est GFR (CKD-EPI)AfAm Est GFR (CKD-EPI)NonAf Random Glucose Calcium Total Bilirubin AST ALT Alkaline Phosphatase Creatine Kinase Troponin I Total Protein Albumin Triglycerides 59 Cholesterol Total LDL Cholesterol 83 HDL Cholesterol Urine Color Yellow Urine Appearance Clear Urine pH 6.0 Ur Specific [place] 1.015 Urine Protein Negative Urine Glucose (UA) Negative Urine Ketones Negative Urine Blood Trace Urine Nitrite Negative Urine Bilirubin Negative Urine Urobilinogen 0.2 Ur Leukocyte Esterase Negative Urine WBC (Auto) 0 Urine RBC (Auto) 2 Urine Casts (Auto) 1 U Epithel Cells (Auto) 0.6 Urine Bacteria (Auto) 78.0 Blood Type AB POSITIVE Antibody Screen Negative 09/20/19 09/20/19 15:34 15:34 Sodium 140 Potassium 4.1 Chloride 107 Carbon Dioxide 26 Anion Gap 7 L BUN 11.5 Creatinine 0.7 Est GFR (CKD-EPI)AfAm 132.87 Est GFR (CKD-EPI)NonAf 114.64 Random Glucose 71 L Calcium 9.1 Total Bilirubin 0.2 AST 12 L ALT 15 Alkaline Phosphatase 85 Creatine Kinase 68 Troponin I < 0.02 Total Protein 7.0 Albumin 3.7 Triglycerides 59 Cholesterol 172 Total LDL Cholesterol 80 HDL Cholesterol 78 H Urine Color Urine Appearance Urine pH Ur Specific [place] Urine Protein Urine Glucose (UA) Urine Ketones Urine Blood Urine Nitrite Urine Bilirubin Urine Urobilinogen Ur Leukocyte Esterase Urine WBC (Auto) Urine RBC (Auto) Urine Casts (Auto) U Epithel Cells (Auto) Urine Bacteria (Auto) Blood Type Antibody Screen 09/20/19 15:34 RBC 4.29 MCV 85.0 MCHC 33.4 RDW 14.1 MPV 8.8 Neutrophils % 55.0 Lymphocytes % 30.1 D Monocytes % 10.7 H Eosinophils % 2.9 Basophils % 1.3 Discharge - Discharge Information Problems reviewed: Yes Clinical Impression/Diagnosis: Vision changes Condition: Improved Disposition: HOME - Follow up/Referral - Patient Discharge Instructions - Post Discharge Activity
--- NOTE | 2019-09-20 18:01 | PDOC ---
Attending Attestation - Resident Resident Name: ZeniaSameera - ED Attending Attestation I have performed the following: I have examined & evaluated the patient, The case was reviewed & discussed with the resident, I agree w/resident's findings & plan, Exceptions are as noted - HPI HPI: 09/20/19 18:00 33 F with h/o depression, lumbar surgeries, presenting to ED with unilateral vision loss. States that for the past month, she has had intermittent L eye vision loss. She states that it is usually upon awakening and resolves gradually as the day progresses. Pt denies any headaches. Denies pain in her eye. Endorses occasional L arm weakness as well. No leg weakness/numbness. No neck pain or back pain. - Physicial Exam PE: 09/20/19 18:15 "GENERAL: Awake, alert, and fully oriented, in no acute distress. HEAD: No signs of trauma EYES: PERRLA, EOMI, sclera anicteric, conjunctiva clear ENT: Auricles normal inspection, hearing grossly normal, nares patent, oropharynx clear without exudates. Moist mucosa NECK: Nontender, no stepoffs, Normal ROM, supple, no lymphadenopathy, JVD, or masses LUNGS: Breath sounds equal, clear to auscultation bilaterally. No wheezes, and no crackles HEART: Regular rate and rhythm, normal S1 and S2, no murmurs, rubs or gallops ABDOMEN: Soft, nontender, normoactive bowel sounds. No guarding, no rebound. No masses EXTREMITIES: Normal range of motion, no edema. No clubbing or cyanosis. No cords, erythema, or tenderness NEUROLOGICAL: Cranial nerves II through XII intact. 5/5 strength and sensation in all extremities, Normal speech, normal gait, normal cerebellar function SKIN: Warm, Dry, normal turgor, no rashes or lesions noted. - Critical Care Time Total Critical Care Time: 60 Critical Care Statement: The care of this patient involved high complexity decision making to prevent further life threatening deterioration of the patient 's condition and/or to evaluate & treat vital organ system(s) failure or risk of failure. - Medical Decision Making 09/20/19 18:15 33 F with intermittent L eye vision loss and L arm weakness. Exam normal at this time, no neuro deficits. Possible atypical migraines but pt without headaches. Pseudotumor also unlikely as pt does not have wake-up headaches. Will evaluate for MS. Also consider CVA, though pt with no risk factors. - Labs - MRI - Neuro c/s
[2019-09-20] MEDS ORDERED: ACETAMINOPHEN 1000 MG/100 ML VIAL (NON FORMULARY) IVPB ONE (20:39)
[2019-09-20] MEDS ORDERED: ACETAMINOPHEN INJECTION 100 ML IVPB ONE (21:08)
--- NOTE | 2019-09-21 00:18 | PN ---
Teaching Attending Note Name of Resident: Ivania Taylor ATTENDING PHYSICIAN STATEMENT I saw and evaluated the patient. I reviewed the resident's note and discussed the case with the resident. I agree with the resident's findings and plan as documented. SUBJECTIVE: 33-year-old woman with a history of depression and multiple spine surgeries who had lumbar fixation complains of 1 week of left eye vision loss which is worse with waking up in the morning and improves as the day goes on. She reports blurry vision and occasionally some photophobia. Denies any trauma to her eye.. Patient's vision loss shortly after resolved. She had some pain with extraocular movements of the left eye as well. Outpatient ophthalmology exam suggested left optic nerve edema. Patient denied any focal weaknesses. Brain MRI was performed. OBJECTIVE: Last Vital Signs Temp Pulse Resp BP Pulse Ox 98.3 F 79 18 117/20 L 99 09/20/19 23:30 09/20/19 23:30 09/20/19 23:30 09/20/19 23:30 09/20/19 23:32 GENERAL: Well developed, well nourished. Awake and alert. No acute distress. HEENT: Normocephalic, atraumatic. PERRLA, EOMI. No conjunctival pallor. Sclera are non- icteric. Moist mucous membranes. Oropharynx is clear. NECK: Supple. Full ROM. No JVD. Carotid pulses 2+ and symmetric, without bruits. No thyromegaly. No lymphadenopathy. CARDIOVASCULAR: Regular rate and rhythm. No murmurs, rubs, or gallops. Distal pulses are 2+ and symmetric. PULMONARY: No evidence of respiratory distress. Lungs clear to auscultation bilaterally. No wheezing, rales or rhonchi. ABDOMINAL: Soft. Non-tender. Non-distended. No rebound or guarding. No organomegaly. Normoactive bowel sounds. MUSCULOSKELETAL Normal range of motion at all joints. No bony deformities or tenderness. No CVA tenderness. EXTREMITIES: No cyanosis. No clubbing. No edema. No calf tenderness. SKIN: Warm and dry. Normal capillary refill. No rashes. No jaundice. NEUROLOGICAL: Alert, awake, appropriate. Cranial nerves 2-12 intact Except for blurry vision in left eye. No deficits to light touch and temperature in face, upper extremities and lower extremities. No motor deficits in the in face, upper extremities and lower extremities. Normoreflexic in the upper and lower extremities. Normal speech. Toes are down-going bilaterally. Gait is normal without ataxia. PSYCHIATRIC: Cooperative. Good eye contact. Appropriate mood and affect. Abnormal Lab Results 09/20/19 09/20/19 09/20/19 15:34 15:34 15:34 Monocytes % 10.7 H Anion Gap 7 L Random Glucose 71 L AST 12 L HDL Cholesterol 78 H Imaging reviewed ASSESSMENT AND PLAN: 33-year-old woman with left eye transient visual loss and evidence of optic nerve edema on brain MRI suggestive of optic neuritis. Paucity of other neurological findings. No other focal neurological deficits appreciated. Must rule out demyelinating neurological disease such as MS. Other possibilities on the differential diagnosis include vasculitis or autoimmune disease. Admit to [facility] Follow-up official brain MRI report Neurology evaluation Vitamin B12, RPR, TSH ESR, CRP, AMAIR DVT prophylaxis with heparin subcu
[2019-09-21 02:47] VITALS: BMI 31.5
--- NOTE | 2019-09-21 05:07 | HP ---
CHIEF COMPLAINT: episodes of sudden vision loss PCP: Dr Jerome HISTORY OF PRESENT ILLNESS: 33 y/o female with PMH of depression, multiple spine surgeries due to occupational back injury presents w/ 2 weeks of intermittent loss of vision in her L eye. The patient states she had 1 month of intermittent, sharp pain in both eyes associated with redness and intermittent FARIAS. The pain was exacerbated by light and movement and relieved by prednisolone drops prescribed by her PCP.3 weeks ago, pt experienced 9/10 pain, blurry vision, redness and tearing that resolved a while after using the steroids drops. However, 2 weeks ago the patient began to experience sudden vision loss in the L eye only she states when she wakes up from sleep; she can only see black and cannot see anything out of her left eye for 2-3 hrs and then her vision returns. She further states after naps, she also experience vision loss but it is less severe and spotty lasting less than an hour. She has sudden resolution after the episodes and denies any eye pain during each crisis. No associated N/V ,FARIAS or weakness, pain, redness, rhinorrhea or migraines . She does endorse numbness in her left arm persistently for 2 weeks . She denies any sudden weight loss however she had bariatric sleeve surgery 7 months ago w/ 67 lb weight loss since. She reports that in 2014 she had a similar episode to this , but w/ no vision loss. W/ her last episode she went to the doctor and was told she had inflammation and was given drugs with a red top . The pt wears glasses for nearsightedness (no recent change in prescription) , no contact lens use , no seizures, DM ,CAD, HTN, Erythema Nodosum, no hypercoag history, but reports easy bruising. Denies OCP and anticholinergic use. Reports trauma to her right eye with nail diamonds but does not recall any trauma to her left eye. No scalp tenderness. She does have a Hx of herpes cold sores but no STD history. 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 ER course was notable for: (1) CBC and CMP both unremarkable (2) brain MRI suggestive of optic neuritis (3) orfimev, NS Recent Travel: denies PAST MEDICAL HISTORY: as above PAST SURGICAL HISTORY: as above FAMILY HISTORY: none contributory Social History: Smokin pack for 3 days but hasnt been smoking as much as before Alcohol: social drinker Drugs: denies Allergies No Known Allergies Allergy (Verified 11/09/18 19:27) HOME MEDICATIONS: Home Medications Medication Instructions Recorded NK [No Known Home Medication] 09/21/19 REVIEW OF SYSTEMS CONSTITUTIONAL: Absent: fever, chills, diaphoresis, generalized weakness, malaise, loss of appetite, weight change HEENT: eye pain, visual changes Absent: rhinorrhea, nasal congestion, throat pain, throat swelling, difficulty swallowing, mouth swelling, ear pain, CARDIOVASCULAR: Absent: chest pain, syncope, palpitations, irregular heart rate, lightheadedness , peripheral edema RESPIRATORY: Absent: cough, shortness of breath, dyspnea with exertion, orthopnea, wheezing, stridor, hemoptysis GASTROINTESTINAL: Absent: abdominal pain, abdominal distension, nausea, vomiting, diarrhea, constipation, melena, hematochezia GENITOURINARY: Absent: dysuria, frequency, urgency, hesitancy, hematuria, flank pain, genital pain MUSCULOSKELETAL: Absent: myalgia, arthralgia, joint swelling, back pain, neck pain SKIN: Absent: rash, itching, pallor HEMATOLOGIC/IMMUNOLOGIC: Absent: easy bleeding, easy bruising, lymphadenopathy, frequent infections ENDOCRINE: Absent: unexplained weight gain, unexplained weight loss, heat intolerance, cold intolerance NEUROLOGIC: headache, paresthesias Absent: , focal weakness dizziness, unsteady gait, seizure, mental status changes, bladder or bowel incontinence PSYCHIATRIC: depression Absent: anxiety, suicidal or homicidal ideation, hallucinations. PHYSICAL EXAMINATION Vital Signs - 24 hr 09/20/19 09/20/19 09/20/19 15:07 23:30 23:32 Temperature 98.2 F 98.3 F Pulse Rate 82 Pulse Rate [ 79 Radial] Respiratory 18 18 Rate Blood Pressure 116/74 Blood Pressure 117/20 L [Left Arm] O2 Sat by Pulse 100 99 99 Oximetry (%) 09/21/19 09/21/19 01:41 02:20 Temperature 98.2 F Pulse Rate 60 Pulse Rate [ 73 Radial] Respiratory 18 20 Rate Blood Pressure 118/80 Blood Pressure 103/74 [Left Arm] O2 Sat by Pulse 100 99 Oximetry (%) GENERAL: Awake, alert, and fully oriented, in no acute distress. HEAD: Normal with no signs of trauma. EYES: Pupils equal, round and reactive to light, extraocular movements intact but pain with lateralization in the L eye and with down and out, erythema, normal confrontational visual field, retinal without any lesion, normal light reflex, no papilledema, no hemorrhage, no blood vessel abnormality, sclera anicteric, conjunctiva clear. No lid lag, Proptosis/ptosis EARS, NOSE, THROAT: Ears normal, nares patent, oropharynx clear without exudates. Moist mucous membranes. NECK: Normal range of motion, supple without lymphadenopathy, JVD, or masses. LUNGS: Breath sounds equal, clear to auscultation bilaterally. No wheezes, and no crackles. No accessory muscle use. HEART: Regular rate and rhythm, normal S1 and S2 without murmur, rub or gallop. ABDOMEN: Soft, nontender, not distended, normoactive bowel sounds, no guarding, no rebound, no masses. No hepatomegaly or splenomegaly. MUSCULOSKELETAL: Normal range of motion at all joints. No bony deformities or tenderness. No CVA tenderness. UPPER EXTREMITIES: 2+ pulses, warm, well-perfused. No cyanosis. No clubbing. No peripheral edema. LOWER EXTREMITIES: 2+ pulses, warm, well-perfused. No calf tenderness. No peripheral edema. NEUROLOGICAL: Cranial nerves II-XII intact. Normal speech. Normal gait. motor strength 5/5 in all muscle group, sensation intact throughout PSYCHIATRIC: Cooperative. Good eye contact. Appropriate mood and affect. SKIN: Warm, dry, normal turgor, no rashes or lesions noted, normal capillary refill. Laboratory Results - last 24 hr 09/20/19 09/20/19 09/20/19 15:34 15:34 15:34 WBC 5.5 RBC 4.29 Hgb 12.2 Hct 36.5 MCV 85.0 MCH 28.4 MCHC 33.4 RDW 14.1 Plt Count 275 MPV 8.8 Absolute Neuts (auto) 3.0 Neutrophils % 55.0 Lymphocytes % 30.1 D Monocytes % 10.7 H Eosinophils % 2.9 Basophils % 1.3 Nucleated RBC % 0 Sodium 140 Potassium 4.1 Chloride 107 Carbon Dioxide 26 Anion Gap 7 L BUN 11.5 Creatinine 0.7 Est GFR (CKD-EPI)AfAm 132.87 Est GFR (CKD-EPI)NonAf 114.64 Random Glucose 71 L Calcium 9.1 Total Bilirubin 0.2 AST 12 L ALT 15 Alkaline Phosphatase 85 Creatine Kinase 68 Troponin I < 0.02 Total Protein 7.0 Albumin 3.7 Triglycerides 59 Cholesterol 172 Total LDL Cholesterol 80 HDL Cholesterol 78 H Serum , Qual Urine Color Urine Appearance Urine pH Ur Specific Buckner Urine Protein Urine Glucose (UA) Urine Ketones Urine Blood Urine Nitrite Urine Bilirubin Urine Urobilinogen Ur Leukocyte Esterase Urine WBC (Auto) Urine RBC (Auto) Urine Casts (Auto) U Epithel Cells (Auto) Urine Bacteria (Auto) Blood Type Antibody Screen 09/20/19 09/20/19 09/20/19 15:34 15:34 15:34 WBC RBC Hgb Hct MCV MCH MCHC RDW Plt Count MPV Absolute Neuts (auto) Neutrophils % Lymphocytes % Monocytes % Eosinophils % Basophils % Nucleated RBC % Sodium Potassium Chloride Carbon Dioxide Anion Gap BUN Creatinine Est GFR (CKD-EPI)AfAm Est GFR (CKD-EPI)NonAf Random Glucose Calcium Total Bilirubin AST ALT Alkaline Phosphatase Creatine Kinase Troponin I Total Protein Albumin Triglycerides 59 Cholesterol Total LDL Cholesterol 83 HDL Cholesterol Serum , Qual Urine Color Yellow Urine Appearance Clear Urine pH 6.0 Ur Specific Buckner 1.015 Urine Protein Negative Urine Glucose (UA) Negative Urine Ketones Negative Urine Blood Trace Urine Nitrite Negative Urine Bilirubin Negative Urine Urobilinogen 0.2 Ur Leukocyte Esterase Negative Urine WBC (Auto) 0 Urine RBC (Auto) 2 Urine Casts (Auto) 1 U Epithel Cells (Auto) 0.6 Urine Bacteria (Auto) 78.0 Blood Type AB POSITIVE Antibody Screen Negative 09/20/19 15:34 WBC RBC Hgb Hct MCV MCH MCHC RDW Plt Count MPV Absolute Neuts (auto) Neutrophils % Lymphocytes % Monocytes % Eosinophils % Basophils % Nucleated RBC % Sodium Potassium Chloride Carbon Dioxide Anion Gap BUN Creatinine Est GFR (CKD-EPI)AfAm Est GFR (CKD-EPI)NonAf Random Glucose Calcium Total Bilirubin AST ALT Alkaline Phosphatase Creatine Kinase Troponin I Total Protein Albumin Triglycerides Cholesterol Total LDL Cholesterol HDL Cholesterol Serum , Qual Negative Urine Color Urine Appearance Urine pH Ur Specific Buckner Urine Protein Urine Glucose (UA) Urine Ketones Urine Blood Urine Nitrite Urine Bilirubin Urine Urobilinogen Ur Leukocyte Esterase Urine WBC (Auto) Urine RBC (Auto) Urine Casts (Auto) U Epithel Cells (Auto) Urine Bacteria (Auto) Blood Type Antibody Screen ASSESSMENT/PLAN: 33 y/o female with PMH of depression, multiple spine surgeries due to occupational back injury presents w/ 2 weeks of intermittent loss of vision in her L eye with persistent left arm numbness . admitted to r/o demyelinating diseases such as Multiple sclerosis with BRAIN MRI finding suggestive of optic neuritis. Acute transient monocular vision loss associated with optic neuritis and L arm numbness poss due to multiple sclerosis, given age and presentation F/U official Brain MRI report Neurology Dr Cowart consulted B12, RPR, TSH for alternative causes AAMIR for autoimmune monitor neurological function Depression resume home meds FEN No standing fluids encourage PO intake regular diet DVT lovenox daily Visit type - Emergency Visit Emergency Visit: Yes ED Registration Date: 09/20/19 Care time: The patient presented to the Emergency Department on the above date and was hospitalized for further evaluation of their emergent condition. - New Patient This patient is new to me today: Yes Date on this admission: 09/21/19 - Critical Care Critical Care patient: No ATTENDING PHYSICIAN STATEMENT I saw and evaluated the patient. I reviewed the resident's note and discussed the case with the resident. I agree with the resident's findings and plan as documented. SUBJECTIVE: OBJECTIVE: ASSESSMENT AND PLAN:
[2019-09-21 07:50] LABS: BASO % 1.2 % (0-2.0); EOS % 4.5 % (0-4.5); HEMATOCRIT 33.1 % (32.4-45.2); LYMPH % 41.9 % (8-40); MCH 27.7 pg (25.7-33.7); MCHC 33.2 g/dl (32.0-36.0); MEAN CELL VOLUME 83.3 fl (80-96); MEAN PLT VOLUME 9.1 fl (7.5-11.1); MONO % 9.6 % (3.8-10.2); NEUT % 42.8 % (42.8-82.8); PLATELET COUNT 228 K/MM3 (134-434); RBC 3.97 M/mm3 (3.60-5.2); RDW 13.9 % (11.6-15.6); WHITE BLOOD COUNT 4.9 K/mm3 (4.0-10.0)
[2019-09-21 08:19] LABS: BLOOD UREA NITROGEN 7.5 mg/dL (7-18); CALCIUM 8.3 mg/dL (8.5-10.1); CREATININE 0.6 mg/dL (0.55-1.3); PHOSPHOROUS 3.7 mg/dL (2.5-4.9)
[2019-09-21 08:31] LABS: BILIRUBIN,TOTAL 0.4 mg/dL (0.2-1); TOT PROT 5.8 g/dl (6.4-8.2)
[2019-09-21] MEDS: ENOXAPARIN NA (PORCINE) 40 MG/0.4 ML DISP.SYRIN SQ SCH (09:44)
[2019-09-21 10:21] LABS: ERYTHROCYTE SEDIMENTATION RATE 7 mm/hr (0-20)
[2019-09-21] MEDS ORDERED: SUMAtriptan SUCCINATE 50 MG TABLET PO ONE (11:22)
[2019-09-21] MEDS ORDERED: SUMAtriptan SUCCINATE 50 MG TABLET PO PRN (11:23)
--- NOTE | 2019-09-21 11:35 | CONSULT ---
Consult - text type - Consultation Consultation Note: NEUROLOGY CONSULT GREATLY APPRECIATED: Events reviewed. Events reviewed and discussed with medical technicians and ANNABELLA Hemphill. Ophthalmology consultation read and appreciated- Normal fundoscopic exam. This 33 yo RH woman is on disability since 2013 after work related injury with ongoing chronic LBP with "shooting" pains down R leg. PMHX: Gastric bypass 7mos ago, S/P 3 LS surgeries, 2 posterior and one anterior approach? (Dr. Christy Torres) Describes headaches since onset of menses, usually bitemporal "pressure" with photophobia, nausea, kinesiophobia without warning and any time of day. These headaches are often associated with blurring of vision in one eye ( usually on the left) Now with chronic daily headaches at least 6-9 months that just "never fully go away" despite use of motrin. Describes now with "pressure" and "sharp" pains in both eyes L >R, also not relieved by change in eye prescription or steroid drops. FH++ mother and sister with "migraines" Given imitrex (50 mg) today for typical headache with prompt response Review of systems sig for now 3 weeks of new, daytime "tight" pains around left arm radiating into all fingers, intermittent and relieved with massage. Right leg complaints are chronic, but worse in evening hours and can awaken her from sleep. These are somewhat relieved with use of hydrocodone/gabapentin. She does endorse depression at this time. +prior hx of "nicolle horses" MRI of brain (C-) reviewed: Normal study. Official report is also that of a normal study. WBC = 5.5K; MCV= 85 B12= 399; TSH 3.56; ESR=7 GWEN: BP 110/70. 183 lbs. Neck supple. Neg SLR. 2 surgical scars to lower thoracic/lumbosacral area. anterior scar across lower abdomen. Neuro: Awake, alert, responsive. Ox x 3. CNII-CNXII: EOM's full without nystagmus. Full ruiz. No facial. Motor: No drift or tremor. Strength normal. Reflexes normal. Toes downgoing. Coordination: No FTN dystaxia. Sensation: Normal to vibration. Romberg - Gait: Normal including heels, toes. Impression: Normal Neurological Exam Migraine Headaches now converted to Chronic Daily Headache Syndrome (CRDS) Chronic pain/paresthesiae/insomnia due to Restless Limbs syndrome (RLS) Suggest: Stop Tylenol/NSAIDs Start topiramate 50 mg HS x 3 days, then increase to 75 HS x 3 days , then 100 mg Hs for migraine prophylaxis Add sumatriptain 50-100 mg as needed for migraine Try pramipexole 0.125 mg q12H for RLS for both daytime and nighttime complaints Check Fe++, TIBC, Ferritin Neuro f/u as outpatient for further management of Migraines/RLS Stable for discharge Thank you very much, Narinder Cowart MD
--- NOTE | 2019-09-21 14:36 | EKG ---
Test Reason : Blood Pressure : / mmHG Vent. Rate : 071 BPM Atrial Rate : 071 BPM P-R Int : 156 ms QRS Dur : 088 ms QT Int : 388 ms P-R-T Axes : 074 060 042 degrees QTc Int : 421 ms NORMAL SINUS RHYTHM POSSIBLE LEFT ATRIAL ENLARGEMENT NONSPECIFIC ST ABNORMALITY Confirmed by ESTEVAN CLAY MD ([id number]) on 09/21/2019 2:36:08 PM Referred By: Confirmed By:ESTEVAN CLAY MD
[2019-09-21] MEDS ORDERED: SODIUM CHLORIDE 1,000 ML IV SCH (14:41)
--- NOTE | 2019-09-21 17:49 | PN ---
Teaching Attending Note Name of Resident: Sandy Gamez ATTENDING PHYSICIAN STATEMENT I saw and evaluated the patient. I reviewed the resident's note and discussed the case with the resident. I agree with the resident's findings and plan as documented. SUBJECTIVE: L upper extremity numbness, x 2 weeks . No FARIAS. pain in eye with lower movement. No fever or chills . RLE numbness since 2-04. decreased vision on and off. blurry visionin L eye OBJECTIVE: NAD, MMM, no injectionin conjunctivae CV: RRR Lungs:CTAB Ext : no edema or erythema. Neuro: EOMI, round equal pupils, reactive to light, no facila droop. visual filed with deficit in LL quadrant in L eye . strength 5/5 in upper and lower extremities proximally and distally. sensation to light touch decreased in LUE and RLE. reflexes 2+ knee jerk and biceps b/l. fundoscopic exam , can't visualize the optic disks ASSESSMENT AND PLAN: 33 y/o lady with h/o depression and spinal stenosis with chronic RLE decreased sensation who presented with intermittent L eye visual loss and LUE decreased sensation 1- L eye visual disturbances and LUE decreased sensation . in DDx MS , vs complicated migraine . MRI reviewed. doubt optic neuritis as ESR is llow, visual field defect is peripheral not central and no typical sx. no suspicion for infection. - treatment per neuro - Was unable to visualize the optic disks - ophthalmology was called in am , Dr. Crespo is aware - case to be d/w neuro by resident - monitor neuro exam
--- NOTE | 2019-09-21 18:03 | PN ---
Physical Exam: SUBJECTIVE: Patient seen and examined 33 y/o female with PMH of depression, multiple spine surgeries due to occupational back injury presents w/ 2 weeks of intermittent loss of vision in her L eye that is worst in the first 3 hours after she wakes up, which resolves on its own. Pt said that she has never had these issues. Currently, pt still c/o of the same symptoms but otherwise is healthy, no c/o or issues. afebrile, asymptomatic. Admits to pain in her periorbital region. Denies f/c/n/v /d, chest pain, sob, abdominal pain. OBJECTIVE: Vital Signs Last Vital Signs Temp Pulse Resp BP Pulse Ox 97.3 F L 67 20 113/77 99 09/21/19 15:21 09/21/19 15:21 09/21/19 15:21 09/21/19 15:21 09/21/19 08:23 GENERAL: The patient is awake, alert, and fully oriented, in no acute distress. EYES: PERRL, extraocular movements intact. Mild pain periorbital region on palpation. ENT:moist mucous membranes. NECK: supple. LUNGS: Breath sounds equal, clear to auscultation bilaterally, no wheezes, no crackles HEART: Regular rate and rhythm, S1, S2 without murmur, rub or gallop. ABDOMEN: Soft, nontender, nondistended, normoactive bowel sounds, no guarding, EXTREMITIES: 2+ pulses, warm, well-perfused, no edema. NEUROLOGICAL: Cranial nerves II through XII grossly intact. Normal speech Laboratory Results - last 24 hr CBC,CMP WBC 4.9 K/mm3 (4.0-10.0) 09/21/19 06:37 RBC 3.97 M/mm3 (3.60-5.2) 09/21/19 06:37 Hgb 11.0 GM/dL (10.7-15.3) 09/21/19 06:37 Hct 33.1 % (32.4-45.2) 09/21/19 06:37 MCV 83.3 fl (80-96) 09/21/19 06:37 MCH 27.7 pg (25.7-33.7) 09/21/19 06:37 MCHC 33.2 g/dl (32.0-36.0) 09/21/19 06:37 RDW 13.9 % (11.6-15.6) 09/21/19 06:37 Plt Count 228 K/MM3 (134-434) 09/21/19 06:37 MPV 9.1 fl (7.5-11.1) 09/21/19 06:37 Absolute Neuts (auto) 2.1 K/mm3 (1.5-8.0) 09/21/19 06:37 Neutrophils % 42.8 % (42.8-82.8) D 09/21/19 06:37 Lymphocytes % 41.9 % (8-40) H D 09/21/19 06:37 Monocytes % 9.6 % (3.8-10.2) 09/21/19 06:37 Eosinophils % 4.5 % (0-4.5) 09/21/19 06:37 Basophils % 1.2 % (0-2.0) 09/21/19 06:37 Nucleated RBC % 0 % (0-0) 09/21/19 06:37 ESR 7 mm/hr (0-20) 09/21/19 06:37 Sodium 143 mmol/L (136-145) 09/21/19 06:37 Potassium 4.0 mmol/L (3.5-5.1) 09/21/19 06:37 Chloride 111 mmol/L (98-107) H 09/21/19 06:37 Carbon Dioxide 25 mmol/L (21-32) 09/21/19 06:37 Anion Gap 7 MMOL/L (8-16) L 09/21/19 06:37 BUN 7.5 mg/dL (7-18) 09/21/19 06:37 Creatinine 0.6 mg/dL (0.55-1.3) 09/21/19 06:37 Est GFR (CKD-EPI)AfAm 139.78 09/21/19 06:37 Est GFR (CKD-EPI)NonAf 120.61 09/21/19 06:37 Random Glucose 76 mg/dL (74-106) 09/21/19 06:37 Calcium 8.3 mg/dL (8.5-10.1) L 09/21/19 06:37 Phosphorus 3.7 mg/dL (2.5-4.9) 09/21/19 06:37 Magnesium 2.0 mg/dL (1.8-2.4) 09/21/19 06:37 Total Bilirubin 0.4 mg/dL (0.2-1) 09/21/19 06:37 AST 8 U/L (15-37) L 09/21/19 06:37 ALT 13 U/L (13-61) 09/21/19 06:37 Alkaline Phosphatase 75 U/L (45-117) 09/21/19 06:37 Creatine Kinase 68 U/L (26-192) 09/20/19 15:34 Troponin I < 0.02 ng/ml (0.00-0.05) 09/20/19 15:34 Total Protein 5.8 g/dl (6.4-8.2) L 09/21/19 06:37 Albumin 3.0 g/dl (3.4-5.0) L 09/21/19 06:37 Triglycerides 59 mg/dL (0-150) 09/20/19 15:34 Cholesterol 172 mg/dL (50-200) 09/20/19 15:34 Total LDL Cholesterol 80 mg/dL (5-100) 09/20/19 15:34 HDL Cholesterol 78 mg/dL (40-60) H 09/20/19 15:34 Vitamin B12 399 pg/ml (193-986) 09/21/19 06:37 TSH 2.56 uIU/ml (0.358-3.74) 09/21/19 06:37 Serum , Qual Negative 09/20/19 15:34 Active Medications Current Medications Enoxaparin Sodium (Lovenox -) 40 mg SQ DAILY [facility] Last Admin: 09/21/19 09:44 Dose: 40 mg Sodium Chloride (Normal Saline -) 1,000 mls @ 42 mls/hr IV ASDIR [facility] Pramipexole Dihydrochloride (Mirapex -) 0.125 mg PO Q12H [facility] Sumatriptan Succinate (Imitrex -) 50 mg PO PRN PRN PRN Reason: HEADACHE Topiramate (Topamax -) 50 mg PO HS [facility] Home Medications Medication Instructions Recorded NK [No Known Home Medication] 09/21/19 ASSESSMENT/PLAN: 33 y/o female with PMH of depression, multiple spine surgeries due to occupational back injury presents w/ 2 weeks of intermittent loss of vision in her L eye #Acute transient Left eye monocular vision loss likely 2/2 to optic neuritis vs migraines r/o multiple sclerosis, Brain MRI- normal finding, no demyelinating process seen Discussed with Neurology- Migraine Headaches now converted to Chronic Daily Headache Syndrome Neuro does not think this is multiple sclerosis or optic neuritis Appreciate neuro consult RPR- nonreactive AAMIR for autoimmune- pending TSH- 2.56 ESR 7 ophthalmology was called in am , Dr. Crespo is aware monitor neurological function #Depression resume home meds #FEN No standing fluids encourage PO intake regular diet #DVT lovenox daily Dispo: monitor neuro functions, f/u with opthomology in the am Visit type - Emergency Visit Emergency Visit: Yes ED Registration Date: 09/20/19 Care time: The patient presented to the Emergency Department on the above date and was hospitalized for further evaluation of their emergent condition. - New Patient This patient is new to me today: Yes Date on this admission: 09/21/19 - Critical Care Critical Care patient: No - Discharge Referral Referred to [facility] Med P.C.: No ATTENDING PHYSICIAN STATEMENT I saw and evaluated the patient. I reviewed the resident's note and discussed the case with the resident. I agree with the resident's findings and plan as documented. SUBJECTIVE: OBJECTIVE: ASSESSMENT AND PLAN:
[2019-09-21] MEDS ORDERED: TOPIRAMATE 25 MG TABLET (FP) PO SCH (22:00)
[2019-09-21] MEDS ORDERED: PT OWN MED DRAWER 7, Y5N ONE (23:25)
[2019-09-22] MEDS: PRAMIPEXOLE DIHYDROCHLORIDE 0.125 MG TABLET PO SCH ×2 (00:18→09:10)
[2019-09-22] MEDS ORDERED: PT OWN MED DRAWER 7, Y5N ONE (09:08)
[2019-09-22] MEDS: ENOXAPARIN NA (PORCINE) 40 MG/0.4 ML DISP.SYRIN SQ SCH (09:10)
[2019-09-22 09:36] LABS: BASO % 1.1 % (0-2.0); EOS % 3.8 % (0-4.5); HEMATOCRIT 35.4 % (32.4-45.2); HEMOGLOBIN 11.6 GM/dL (10.7-15.3); LYMPH % 34.3 % (8-40); MCH 27.4 pg (25.7-33.7); MCHC 32.8 g/dl (32.0-36.0); MEAN CELL VOLUME 83.4 fl (80-96); MEAN PLT VOLUME 9.2 fl (7.5-11.1); MONO % 11.6 % (3.8-10.2); NEUT % 49.2 % (42.8-82.8); PLATELET COUNT 241 K/MM3 (134-434); RBC 4.24 M/mm3 (3.60-5.2); RDW 13.8 % (11.6-15.6); WHITE BLOOD COUNT 4.6 K/mm3 (4.0-10.0)
[2019-09-22 10:36] LABS: ALBUMIN 3.3 g/dl (3.4-5.0); BILIRUBIN,TOTAL 0.6 mg/dL (0.2-1); BLOOD UREA NITROGEN 9.7 mg/dL (7-18); CALCIUM 9.1 mg/dL (8.5-10.1); CREATININE 0.7 mg/dL (0.55-1.3); POTASSIUM 4.3 mmol/L (3.5-5.1); TOT PROT 6.2 g/dl (6.4-8.2)
--- NOTE | 2019-09-22 13:38 | PN ---
Teaching Attending Note Name of Resident: Aashish France ATTENDING PHYSICIAN STATEMENT I saw and evaluated the patient. I reviewed the resident's note and discussed the case with the resident. I agree with the resident's findings and plan as documented. SUBJECTIVE: No FARIAS , no pain in the eye. No fever or chills. L upper ext numbness has resolved. does not have RLE numbness now ( on and off since 2013). her L eye was slightly blurry in am but it has resolved, she did not have loss of vision today OBJECTIVE: NAD, MMM, no injection in conjunctivae CV: RRR Lungs:CTAB Ext : no edema or erythema. Neuro: EOMI, round equal pupils, reactive to light, no facial droop. . strength 5/5 in upper and lower extremities proximally and distally. sensation to light touch decreased in RLE. reflexes 2+ knee jerk and biceps b/l. ASSESSMENT AND PLAN: 33 y/o lady with h/o depression and spinal stenosis with chronic RLE decreased sensation who presented with intermittent L eye visual loss and LUE decreased sensation 1- L eye visual disturbances and LUE decreased sensation . complicated migraines per neuro - improved - dc home on topiramate and pramipixole - f/u with neuro and ophthalmology ( has opth and will see him in 2-3 days dc home
--- NOTE | 2019-09-22 15:01 | DS ---
Physical Exam: SUBJECTIVE: Patient seen and examined. Otherwise is healthy, no c/o or issues. afebrile, asymptomatic. Denies f/c/n/v/d, chest pain, sob, abdominal pain. OBJECTIVE: Vital Signs Period Temp Pulse Resp BP Sys/Daily Pulse Ox Last 24 Hr 97.1 F-98.4 F 57-67 18-20 98-113/54-77 97 PHYSICAL EXAM GENERAL: The patient is awake, alert, and fully oriented, in no acute distress. EYES: PERRL, extraocular movements intact. Mild pain periorbital region on palpation. ENT:moist mucous membranes. NECK: supple. LUNGS: Breath sounds equal, clear to auscultation bilaterally, no wheezes, no crackles HEART: Regular rate and rhythm, S1, S2 without murmur, rub or gallop. ABDOMEN: Soft, nontender, nondistended, normoactive bowel sounds, no guarding, EXTREMITIES: 2+ pulses, warm, well-perfused, no edema. NEUROLOGICAL: Cranial nerves II through XII grossly intact. Normal speech LABS Laboratory Results - last 24 hr 09/21/19 09/22/19 09/22/19 06:37 07:40 07:40 WBC 4.6 RBC 4.24 Hgb 11.6 Hct 35.4 MCV 83.4 MCH 27.4 MCHC 32.8 RDW 13.8 Plt Count 241 MPV 9.2 Absolute Neuts (auto) 2.3 Neutrophils % 49.2 Lymphocytes % 34.3 Monocytes % 11.6 H Eosinophils % 3.8 Basophils % 1.1 Nucleated RBC % 0 Sodium 139 Potassium 4.3 Chloride 107 Carbon Dioxide 27 Anion Gap 4 L BUN 9.7 Creatinine 0.7 Est GFR (CKD-EPI)AfAm 132.87 Est GFR (CKD-EPI)NonAf 114.64 Random Glucose 84 Calcium 9.1 Iron 36 L TIBC 253 Iron Saturation 14 L Unsaturated IBC 217 Ferritin 22.1 Total Bilirubin 0.6 AST 10 L ALT 11 L Alkaline Phosphatase 73 C-Reactive Protein 1.0 H Total Protein 6.2 L Albumin 3.3 L HOSPITAL COURSE: Date of Admission:09/20/19 33 y/o female with PMH of depression, multiple spine surgeries due to occupational back injury presents w/ 2 weeks of intermittent loss of vision in her L eye that is worst in the first 3 hours after she wakes up, which resolves on its own which was diagnosed to be due to migraines that progressed to a chronic daily headache syndrome. MRI of the brain was negative for any findings and ophthalmology reported no findings. Pt was started on topiramate and discharged home on Topiramate 50, 75 and 100 and pramipexole .125 Q12 for her restless leg syndrome. Brain MRI- negative EKG- NSR #Acute transient Left eye monocular vision loss likely 2/2 to migraines Brain MRI- normal finding, no demyelinating process seen Discussed with Neurology- Migraine Headaches now converted to Chronic Daily Headache Syndrome RPR- nonreactive AAMIR for autoimmune- pending TSH- 2.56 ESR 7 Date of Discharge: 09/22/19 Minutes to complete discharge: 35 Discharge Summary Reason For Visit: VISION LOSS OF LEFT EYE Current Active Problems Migraines (Chronic) Condition: Improved - Instructions Diet, Activity, Other Instructions: You were admitted to the hospital for left eye blindness While you were in the hospital, we evaluated you for your symptoms with lab work , blood work, imaging including an MRI of your brain. We found that your symptoms were caused by migraines and treated you for it. We gave you medications and your symptoms improved. To treat your migraines, please take Topiramate 50 mg once at night for 2 days, then increase to 75 mg once at night for 3 more days. Then, take 100 mg of topirmate by mouth every night. Please also take Pramipexole .125 mg every 12 hours to treat your restless leg syndrome. Please make appointment with the neurologist in one week to monitor your symptoms. Please take all your home medications as prescribed Please follow up with your primary care doctor in one week Return to the emergency room if you experience worsening of your symptoms, shortness of breath, chest pain, nausea or vomiting. 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 Referrals: [facility] [place] [facility] [place] [Provider Group] Narinder Cowart MD [Staff Physician] - 1 Week Disposition: HOME - Home Medications Comprehensive Discharge Medication List: Ambulatory Orders Pramipexole Di-HCl [Pramipexole Dihydrochloride] 0.125 mg PO Q12H PRN #30 tablet 09/22/19 Topiramate 50 mg PO HS #2 tablet 09/22/19 Topiramate 75 mg PO HS #9 tablet 11/02/19 Topiramate [Topamax -] 100 mg PO HS #14 tab 09/22/19 - Discharge Referral Referred to [facility] No ATTENDING PHYSICIAN STATEMENT I saw and evaluated the patient. I reviewed the resident's note and discussed the case with the resident. I agree with the resident's findings and plan as documented. SUBJECTIVE: OBJECTIVE: ASSESSMENT AND PLAN:
[2019-09-22 15:19] VITALS: BP 107/64; PULSE 68; TEMP 98
--- NOTE | 2019-09-24 11:02 | EKG ---
Test Reason : Blood Pressure : / mmHG Vent. Rate : 049 BPM Atrial Rate : 049 BPM P-R Int : 130 ms QRS Dur : 078 ms QT Int : 426 ms P-R-T Axes : 045 058 042 degrees QTc Int : 384 ms SINUS BRADYCARDIA OTHERWISE NORMAL ECG WHEN COMPARED WITH ECG OF 23-JAN-2014 23:21, VENT. RATE HAS DECREASED BY 24 BPM Confirmed by CR DEAL MD ([id number]) on 09/24/2019 11:01:39 AM Referred By: Confirmed By:CR DEAL MD
== END 2019-09-22 15:00 | disposition home or self-care (01) | DRG 103 ==
LOC: JER 15:02 → JERBED 22:05 → J4W 09-21 02:28 → J5S 09-21 15:10
PROVIDERS: ADMIT Internal Medicine; ATTEND Internal Medicine
DX: G43.909 Migraine, unspecified, not intractable, without status migrainosus (principal); H53.122 Transient visual loss, left eye; H46.9 Unspecified optic neuritis; F32.9 Major depressive disorder, single episode, unspecified; G25.81 Restless legs syndrome; R20.0 Anesthesia of skin
CPT/HCPCS: 36415; 70551-TC; 80053; 81003; 82465; 82550; 82607; 82728; 83540; 83550; 83718; 83721; 83735; 84100; 84443; 84478; 84484; 84703; 85025; 85651; 86038; 86140; 86593; 86850; 86900; 86901; 93005; 93010; 97116-GP; 97161-GP; 99285-25; J0131; J7030

== ENCOUNTER 2020-12-09 04:22 | Day surgery (SDC) | payer OTHER ==
[2020-12-05 09:18] VITALS: BMI 28.6
[2020-12-09] MEDS ORDERED: LIDOCAINE HCL 1%, 10 MG/ML (20ML VIAL) ONE ×3 (08:30→10:43)
[2020-12-09] MEDS ORDERED: MIDAZOLAM HCL 2 MG/2 ML SINGLE DOSE VIAL ONE (10:23)
[2020-12-09] MEDS ORDERED: PROPOFOL 20 ML ONE ×7 (10:23→11:22)
[2020-12-09] MEDS ORDERED: ceFAZolin 2 GRAM PREMIX BAG IVPB ONE (10:31)
[2020-12-09] MEDS ORDERED: BENZOIN/ALOE VERA/STORAX/TOLU 58 ML BOTTLE ONE (11:46)
[2020-12-09 12:16] VITALS: TEMP 98.4
[2020-12-09] MEDS ORDERED: oxyCODONE HCL 5 MG TABLET PO ONE (12:30)
[2020-12-09] MEDS ORDERED: oxyCODONE HCL 5 MG TABLET ONE (12:35)
[2020-12-09 13:52] VITALS: BP 109/75; PULSE 78
== END 2020-12-09 13:30 | disposition home or self-care (01) ==
LOC: JASU-SURG 04:22
PROVIDERS: ATTEND Physical Medicine & Rehabilitation
PROC: 00HU3MZ Insertion of Neurostimulator Lead into Spinal Canal, Percutaneous Approach (ICD-10-PCS; 2020-12-09)
PROC: 0JH70BZ Insertion of Single Array Stimulator Generator into Back Subcutaneous Tissue and Fascia, Open Approach (ICD-10-PCS; principal; 2020-12-09 09:00)
DX: M96.1 Postlaminectomy syndrome, not elsewhere classified (principal); M54.16 Radiculopathy, lumbar region; M54.5 Low back pain
CPT/HCPCS: 63650; C1897; 76000-TC-FY; 84703

== ENCOUNTER 2021-08-06 20:42 | Emergency (ER) | payer OTHER ==
[2021-08-06 21:10] VITALS: BP 108/67; PULSE 73; TEMP 98.1
[2021-08-06 22:51] LABS: BASO % 1.5 % (0-2.0); EOS % 9.9 % (0-4.5); HEMATOCRIT 35.2 % (32.4-45.2); HEMOGLOBIN 11.5 GM/dL (10.7-15.3); MCHC 32.7 g/dl (32.0-36.0); MEAN CELL VOLUME 85.6 fl (80-96); MEAN PLT VOLUME 7.7 fl (7.5-11.1); MONO % 10.6 % (3.8-10.2); PLATELET COUNT 253 10^3/uL (134-434); RBC 4.11 M/mm3 (3.60-5.2); RDW 15.3 % (11.6-15.6); WHITE BLOOD COUNT 5.9 K/mm3 (4.0-10.0)
[2021-08-06 22:59] LABS: INR 0.94 (0.83-1.09); PROTHROMBIN TIME (PATIENT) 11.4 SEC (9.7-13.0)
[2021-08-06 23:02] LABS: ACTIVATED PTT 27.4 SECONDS (25.2-36.5)
[2021-08-06 23:10] LABS: CHLORIDE 111 mmol/L (98-107); SODIUM 142 mmol/L (136-145)
[2021-08-06 23:12] LABS: ANION GAP 4 MMOL/L (8-16); BLOOD UREA NITROGEN 18.5 mg/dL (7-18); CO2 27 mmol/L (21-32); GLUCOSE,RANDOM 89 mg/dL (74-106)
[2021-08-06 23:13] LABS: ALBUMIN 3.2 g/dl (3.4-5.0)
[2021-08-06 23:15] LABS: SGOT/AST 15 U/L (15-37); SGPT/ALT 15 U/L (13-61)
[2021-08-06 23:17] LABS: CREATININE 0.7 mg/dL (0.55-1.3); TOT PROT 6.5 g/dl (6.4-8.2)
[2021-08-06 23:19] LABS: ALK PHOS 64 U/L (45-117)
[2021-08-07 00:02] LABS: BILIRUBIN,TOTAL 0.2 mg/dL (0.2-1)
[2021-08-07] MEDS ORDERED: morphine CARPU-JECT 2 MG/1 ML DISP.SYRIN IM ONE (00:52)
[2021-08-07] MEDS ORDERED: MORPHINE SULFATE 2 MG/ML VIAL ONE (00:56)
[2021-08-07] MEDS ORDERED: morphine CARPU-JECT 2 MG/1 ML DISP.SYRIN IVPUSH ONE (01:02)
== END 2021-08-07 04:00 | disposition home or self-care (01) ==
LOC: JER 20:42
PROC: 3E023NZ Introduction of Analgesics, Hypnotics, Sedatives into Muscle, Percutaneous Approach (ICD-10-PCS; principal; 2021-08-07)
DX: R09.1 Pleurisy (principal)
CPT/HCPCS: 36415; 71046-TC-FY; 71275-TC; 80053; 84484; 84703; 85025; 85379; 85610; 85730; 93005; 93010; 96372; 99285-25

== ENCOUNTER 2021-11-28 10:17 | Emergency (ER) | payer OTHER ==
[2021-11-28 10:29] VITALS: BP 113/78; PULSE 81; TEMP 97.9; BMI 30.2
[2021-11-28] MEDS ORDERED: TETRACAINE 0.5% OPHTH SOLN 2 ML BOTTLE OU ONE (12:59)
[2021-11-28] MEDS ORDERED: BACITRACIN/POLYMYXIN OPH OINT 3.5 GM TUBE OU ONE (13:01)
[2021-11-28] MEDS ORDERED: FLUORESCEIN NA 1 EA STRIP OU ONE (13:06)
[2021-11-28] MEDS ORDERED: TETRACAINE 0.5% OPHTH SOLN 2 ML BOTTLE ONE (13:06)
== END 2021-11-28 14:18 | disposition home or self-care (01) ==
LOC: JERFT 10:17 → JER 10:17 → JERFT 14:18
DX: H10.31 Unspecified acute conjunctivitis, right eye (principal)
CPT/HCPCS: 99283-25

== ENCOUNTER 2023-03-30 15:27 | Emergency (ER) | payer OTHER ==
[2023-03-30 15:52] VITALS: BP 116/84; PULSE 79; RESP 18; TEMP 98; BMI 29.2
[2023-03-30] MEDS ORDERED: FLUORESCEIN NA 1 EA STRIP OD ONE (16:45)
[2023-03-30] MEDS ORDERED: FLUORESCEIN NA 1 EA STRIP ONE (16:45)
[2023-03-30] MEDS ORDERED: TETRACAINE 0.5% OPHTH SOLN 2 ML BOTTLE ONE (16:45)
[2023-03-30] MEDS ORDERED: ACETAMINOPHEN 500 MG TABLET (FP) ONE (17:57)
== END 2023-03-30 18:50 | disposition home or self-care (01) ==
LOC: JERFT 15:27
DX: H57.12 Ocular pain, left eye (principal); H57.89 Other specified disorders of eye and adnexa; R51.9 Headache, unspecified; S05.02XA Injury of conjunctiva and corneal abrasion without foreign body, left eye, initial encounter; X58.XXXA Exposure to other specified factors, initial encounter
CPT/HCPCS: 70450-TC; 99284-25

== ENCOUNTER 2024-06-19 18:05 | Emergency (ER) | payer OTHER ==
[2024-06-19 18:16] VITALS: BP 116/76; PULSE 98; RESP 16; TEMP 98.2; BMI 29.0
[2024-06-19 19:25] LABS: BASO % 1.3 % (0-2.0); EOS % 5.7 % (0-4.5); HEMATOCRIT 39.1 % (32.4-45.2); HEMOGLOBIN 12.9 GM/dL (10.7-15.3); LYMPH % 18.1 % (8-40); MCH 28.3 pg (25.7-33.7); MCHC 32.9 g/dl (32.0-36.0); MEAN CELL VOLUME 85.9 fl (80-96); MONO % 10.4 % (3.8-10.2); NEUT % 64.5 % (42.8-82.8); PLATELET COUNT 345 10^3/uL (134-434); RBC 4.55 M/mm3 (3.60-5.2); WHITE BLOOD COUNT 7.5 K/mm3 (4.0-10.0)
[2024-06-19 19:32] LABS: CHLORIDE 110 mmol/L (98-107); POTASSIUM 4.5 mmol/L (3.5-5.1); SODIUM 141 mmol/L (136-145)
[2024-06-19 19:37] LABS: ANION GAP 4 mmol/L (4-13); BLOOD UREA NITROGEN 12.3 mg/dL (7-18); CALCIUM 9.2 mg/dL (8.5-10.1); CO2 27 mmol/L (21-32); GLUCOSE,RANDOM 91 mg/dL (74-106)
[2024-06-19] MEDS ORDERED: ACETAMINOPHEN 500 MG TABLET (FP) ONE ×2 (19:37→19:40)
[2024-06-19 19:38] LABS: ALBUMIN 3.6 g/dl (3.4-5.0)
[2024-06-19] MEDS: ACETAMINOPHEN 500 MG TABLET (FP) PO ONE (19:39)
[2024-06-19 19:40] LABS: CREATININE 0.9 mg/dL (0.55-1.3); SGOT/AST 20 U/L (15-37)
[2024-06-19 19:41] LABS: INR 0.91 (0.83-1.09); PROTHROMBIN TIME (PATIENT) 10.5 SEC (9.7-13.0); SGPT/ALT 23 U/L (13-61)
[2024-06-19 19:42] LABS: TOT PROT 7.1 g/dl (6.4-8.2)
[2024-06-19 19:43] LABS: ACTIVATED PTT 28.8 SECONDS (25.2-36.5); ALK PHOS 63 U/L (45-117)
[2024-06-19 19:45] LABS: BILIRUBIN,TOTAL 0.2 mg/dL (0.2-1)
[2024-06-19 19:46] LABS: EPI CELLS 30 /uL (0-25.1); HYALINE CASTS 1 /uL (0-3.1); URINE APPEARANCE CLEAR; URINE BACTERIA 137 /uL (0-1359); URINE BILIRUBIN NEGATIVE (NEGATIVE); URINE COLOR YELLOW; URINE GLUCOSE (UA) NEGATIVE (NEGATIVE); URINE KETONE TRACE (NEGATIVE); URINE LEUK ESTERASE NEGATIVE (NEGATIVE); URINE NITRITE NEGATIVE (NEGATIVE); URINE PROTEIN NEGATIVE (NEGATIVE); URINE RBC 18 /uL (0-23.9); URINE WBC 5 /uL (0-25.8)
[2024-06-19 19:47] LABS: HCG,QUALITATIVE URINE Negative
[2024-06-19] MEDS ORDERED: KETOROLAC TROMETHAMINE 15 MG/ML VIAL ONE (22:28)
[2024-06-19] MEDS: KETOROLAC TROMETHAMINE 15 MG/ML VIAL IVPUSH ONE (22:33)
== END 2024-06-19 23:42 | disposition home or self-care (01) ==
LOC: JER 18:05
PROC: 3E0333Z Introduction of Anti-inflammatory into Peripheral Vein, Percutaneous Approach (ICD-10-PCS; principal; 2024-06-19)
DX: N93.9 Abnormal uterine and vaginal bleeding, unspecified (principal); K59.00 Constipation, unspecified; R11.2 Nausea with vomiting, unspecified; R10.30 Lower abdominal pain, unspecified
CPT/HCPCS: 36415; 74177-TC; 76830-TC; 80053; 81003; 84702; 84703; 85025; 85610; 85730; 86850; 86900; 86901; 87086; 99285-25; Q9967